=== PATIENT | female | born 1990 | race Caucasian/White ===

== ENCOUNTER 2018-07-01 10:03 | Emergency (ER) | payer OTHER ==
[2018-07-01] MEDS: METOCLOPRAMIDE INJ 10MG/2ML VIAL (J2765) IV (11:25)
[2018-07-01] MEDS: KETOROLAC 30 MG/ML VIAL (J1885) IV (11:26)
== END 2018-07-01 12:29 | disposition home or self-care (01) ==
LOC: M ED 10:03
DX: G43.809 Other migraine, not intractable, without status migrainosus (principal); R47.01 Aphasia; Z88.1 Allergy status to other antibiotic agents; Z88.8 Allergy status to other drugs, medicaments and biological substances
CPT/HCPCS: J1885

== ENCOUNTER → 2018-11-05 | Outpatient (REF) | payer OTHER | LOC: M SFHCLERA 17:47 | PROVIDERS: ATTEND Nurse Practitioner Family | DX: N30.01 Acute cystitis with hematuria (principal) ==

== ENCOUNTER 2019-04-14 21:20 | Emergency (ER) | payer OTHER ==
[~2019-04-14] VITALS: Ht 165.1 cm; Wt 66.1 kg
[2019-04-14 23:12] LABS: BASO % 0.2 % (0.0-1.0); EOS # 0.1 10^3/uL (0.0-0.5); EOS % 0.5 % (0.0-3.0); HEMATOCRIT 36.8 % (36.0-47.0); LYMPH # 2.1 10^3/uL (1.5-5.0); LYMPH % 21.3 % (24.0-44.0); MEAN CORPUSCULAR HEMOGLOBIN 32.3 pg (27.0-33.0); MEAN CORPUSCULAR HGB CONC 35.3 g/dl (32.0-36.5); MEAN CORPUSCULAR VOLUME 91.3 fl (80.0-96.0); MONO # 0.6 10^3/uL (0.0-0.8); MONO % 5.6 % (0.0-5.0); PLATELET COUNT, AUTOMATED 269 10^3/uL (150-450); RED BLOOD COUNT 4.03 10^6/uL (4.00-5.40); WHITE BLOOD COUNT 9.8 10^3/uL (4.0-10.0)
[2019-04-14] MEDS ORDERED: NS 1,000 ML IV ONE (23:15)
[2019-04-14] MEDS ORDERED: methylPREDNISolone INJ 125 MG/2 ML VIAL (J2930) IV ONE (23:15)
[2019-04-14] MEDS ORDERED: METOCLOPRAMIDE INJ 10MG/2ML VIAL (J2765) IV ONE (23:15)
[2019-04-14] MEDS ORDERED: diphenhydrAMINE INJ 50MG/ML VIAL (J1200) IV ONE (23:15)
[2019-04-14 23:54] LABS: BLOOD UREA NITROGEN 12 MG/DL (7-18); CALCIUM LEVEL 8.9 MG/DL (8.5-10.1); CARBON DIOXIDE LEVEL 22 MEQ/L (21-32); CHLORIDE LEVEL 108 MEQ/L (98-107); CREATININE FOR GFR 0.66 MG/DL (0.55-1.30); GLOMERULAR FILTRATION RATE > 60.0 (>60); GLUCOSE, FASTING 93 MG/DL (70-100); HCG, SERUM QUANTITATIVE 68023 MIU/ML; POTASSIUM SERUM 3.7 MEQ/L (3.5-5.1); SODIUM LEVEL 139 MEQ/L (136-145)
--- NOTE | 2019-04-15 00:32 | REPVR ---
EXAM: US First Trimester, Transabdominal EXAM DATE/TIME: 04/14/2019 11:57 PM CLINICAL HISTORY: 28 years old, female; complicated by abdominal or pelvic pain; Lower; First trimester; Gestational age or lmp: 7w 1d; ; Additional info: Positive , pelvic pain TECHNIQUE: Imaging protocol: Real-time transabdominal obstetrical ultrasound of the maternal pelvis and a first trimester , less than 14 weeks 0 days, with image documentation. COMPARISON: No relevant prior studies available. FINDINGS: GESTATION: Gestation: Intrauterine gestational sac with pole. Heart rate: heart rate of 150 beats per minute. Placenta: Unremarkable. No subchorionic bleed. BIOMETRY: Mcnair-Rump length: The crown-rump length measures 1.1 cm suggesting an age of 7 weeks 1 day. The EDC is 11/30/2019. MATERNAL: Uterus: Unremarkable. Cervix: Unremarkable. Right adnexa: The right ovary measures 3.8 x 2.2 x 3.4 cm and demonstrates blood flow. Left adnexa: The left ovary measures 2.6 x 1.9 x 2.7 cm and demonstrates blood flow. Intraperitoneal: No intraperitoneal free fluid. IMPRESSION: 1. Single live intrauterine gestation with an estimated age of 7 weeks 1 day. The EDC is 11/30/2019. 2. Otherwise negative pelvic sonogram. Electronically signed by: Kannan Summers On 04/15/2019 00:32:52 AM
[2019-04-15 02:17] VITALS: BP 119/62
== END 2019-04-15 02:18 | disposition home or self-care (01) ==
LOC: M ED 21:20
DX: O99.351 Diseases of the nervous system complicating pregnancy, first trimester (principal); G43.909 Migraine, unspecified, not intractable, without status migrainosus; G40.909 Epilepsy, unspecified, not intractable, without status epilepticus; Z88.1 Allergy status to other antibiotic agents; Z88.8 Allergy status to other drugs, medicaments and biological substances; Z3A.01 Less than 8 weeks gestation of pregnancy
CPT/HCPCS: 76801; 80048; 81001; 84702; 85025; 87086; 93976; 96361; 96374; 96375; 99284; J1200; J2765; J2930

== ENCOUNTER 2019-04-28 15:35 | Emergency (ER) | payer OTHER ==
[~2019-04-28] VITALS: Ht 165.1 cm; Wt 65.9 kg
[2019-04-28] MEDS ORDERED: NS 1,000 ML IV ONE (17:00)
[2019-04-28 17:12] LABS: BASO % 0.2 % (0.0-1.0); EOS % 0.2 % (0.0-3.0); HEMATOCRIT 38.1 % (36.0-47.0); HEMOGLOBIN 13.2 g/dl (12.0-15.5); LYMPH # 1.9 10^3/uL (1.5-5.0); LYMPH % 19.6 % (24.0-44.0); MEAN CORPUSCULAR HEMOGLOBIN 31.7 pg (27.0-33.0); MEAN CORPUSCULAR HGB CONC 34.6 g/dl (32.0-36.5); MEAN CORPUSCULAR VOLUME 91.4 fl (80.0-96.0); MONO # 0.4 10^3/uL (0.0-0.8); MONO % 3.9 % (0.0-5.0); NEUTROPHILS # 7.5 10^3/uL (1.5-8.5); NEUTROPHILS % 75.9 % (36.0-66.0); PLATELET COUNT, AUTOMATED 292 10^3/uL (150-450); RED BLOOD COUNT 4.17 10^6/uL (4.00-5.40); WHITE BLOOD COUNT 9.9 10^3/uL (4.0-10.0)
[2019-04-28 17:22] LABS: AMPHETAMINES LEVEL URINE NEGATIVE (NEGATIVE); BARBITURATES URINE NEGATIVE (NEGATIVE); BENZODIAZEPINES URINE NEGATIVE (NEGATIVE); CANNABINOIDS URINE NEGATIVE (NEGATIVE); COCAINE METABOLITE URINE NEGATIVE (NEGATIVE); METHADONE URINE NEGATIVE (NEGATIVE); OPIATES URINE NEGATIVE (NEGATIVE); PHENCYCLIDINE URINE NEGATIVE (NEGATIVE)
[2019-04-28] MEDS ORDERED: EEG (17:23)
[2019-04-28 17:24] LABS: ALT/SGPT 26 U/L (12-78); BILIRUBIN,TOTAL 0.5 MG/DL (0.2-1.0); BLOOD UREA NITROGEN 7 MG/DL (7-18); CALCIUM LEVEL 9.5 MG/DL (8.5-10.1); CARBON DIOXIDE LEVEL 24 MEQ/L (21-32); CHLORIDE LEVEL 106 MEQ/L (98-107); CREATININE FOR GFR 0.73 MG/DL (0.55-1.30); GLOMERULAR FILTRATION RATE > 60.0 (>60); GLUCOSE, FASTING 80 MG/DL (70-100); SODIUM LEVEL 138 MEQ/L (136-145); TOTAL PROTEIN 7.2 GM/DL (6.4-8.2)
[2019-04-28] MEDS ORDERED: METOCLOPRAMIDE INJ 10MG/2ML VIAL (J2765) As Ordered ONE (18:18)
[2019-04-28] MEDS ORDERED: METOCLOPRAMIDE INJ 10MG/2ML VIAL (J2765) IV ONE (18:30)
[2019-04-28 18:47] VITALS: BP 117/61
--- NOTE | 2019-04-28 19:25 | ECGEPIP ---
[facility] - ED Test Date: 2019-04-28 Pat Name: ERIK ABEL Department: Room: - Gender: Female [employer] Operator: nasreen : 1990 Requested By: Alka Mederos Order Number: [id number] Reading MD: Gordo Magdaleno Measurements Intervals Cascade Rate: 66 P: 35 CA: 95 QRS: 20 QRSD: 86 T: 20 QT: 363 QTc: 383 Interpretive Statements SINUS RHYTHM WITH SHORT CA INTERVAL NONSPECIFIC T-WAVE ABNORMALITY POSSIBLE INCOMPLETE RIGHT BUNDLE BRANCH BLOCK NO PRIORS FOR COMPARISON Electronically Signed on 04-28-2019 19:24:56 EDT by Gordo Magadleno
== END 2019-04-28 18:48 | disposition home or self-care (01) ==
LOC: M ED 15:35
DX: O21.9 Vomiting of pregnancy, unspecified (principal); Z88.1 Allergy status to other antibiotic agents; Z88.8 Allergy status to other drugs, medicaments and biological substances; Z3A.08 8 weeks gestation of pregnancy
CPT/HCPCS: 80053; 80307; 85025; 93005; 96361; 96374; 99284; J2765

== ENCOUNTER 2019-05-04 09:54 | Inpatient (IN) | payer OTHER ==
[~2019-05-04] VITALS: Ht 165.1 cm; Wt 65.1 kg
[~2019-05-04 09:54] MED LIST: EEG
[2019-05-04] MEDS ORDERED: FLEET ENEMA PR ONE (11:15)
[2019-05-04 12:35] LABS: BASO % 0.1 % (0.0-1.0); HEMATOCRIT 40.8 % (36.0-47.0); HEMOGLOBIN 14.4 g/dl (12.0-15.5); LYMPH # 0.7 10^3/uL (1.5-5.0); MEAN CORPUSCULAR HEMOGLOBIN 31.2 pg (27.0-33.0); MEAN CORPUSCULAR HGB CONC 35.3 g/dl (32.0-36.5); MEAN CORPUSCULAR VOLUME 88.3 fl (80.0-96.0); MONO # 1.2 10^3/uL (0.0-0.8); MONO % 5.2 % (0.0-5.0); NEUTROPHILS # 21.1 10^3/uL (1.5-8.5); NEUTROPHILS % 91.2 % (36.0-66.0); PLATELET COUNT, AUTOMATED 305 10^3/uL (150-450); RED BLOOD COUNT 4.62 10^6/uL (4.00-5.40); WHITE BLOOD COUNT 23.1 10^3/uL (4.0-10.0)
[2019-05-04 13:05] LABS: BLOOD UREA NITROGEN 10 MG/DL (7-18); CALCIUM LEVEL 9.1 MG/DL (8.5-10.1); CARBON DIOXIDE LEVEL 21 MEQ/L (21-32); CHLORIDE LEVEL 104 MEQ/L (98-107); CREATININE FOR GFR 0.64 MG/DL (0.55-1.30); GLOMERULAR FILTRATION RATE > 60.0 (>60); GLUCOSE, FASTING 130 MG/DL (70-100); POTASSIUM SERUM 3.9 MEQ/L (3.5-5.1); SODIUM LEVEL 137 MEQ/L (136-145); THYROID STIMULATING HORMONE 0.357 uIU/ML (0.358-3.740)
[2019-05-04 13:32] LABS: ALBUMIN 3.5 GM/DL (3.2-5.2); ALT/SGPT 38 U/L (12-78); AMYLASE 44 U/L (25-115); BILIRUBIN,DIRECT 0.2 MG/DL (0.0-0.2); BILIRUBIN,TOTAL 0.4 MG/DL (0.2-1.0); FREE T4 1.35 NG/DL (0.76-1.46); TOTAL PROTEIN 6.7 GM/DL (6.4-8.2)
--- NOTE | 2019-05-04 14:04 | REP ---
Limited abdominal ultrasound for evaluation of the appendix: The appendix is not visualized by ultrasound. There is pain with transducer pressure. However, there is no rebound tenderness. There is no mesenteric fat inflammation. No mesenteric lymph nodes are identified. 4. There is free fluid in the pelvis adjacent to the left ovary. Small bowel peristalsis is identified. The cecum was not visualized. Iliac nodes are not visualized. Impression: The appendix could not be visualized. Mesenteric and iliac nodes cannot be visualized. There is pain with transducer pressure, however, there is no rebound tenderness. There is free fluid in the cul-de-sac adjacent to the left ovary. Electronically Signed by Pavan Enriquez MD 05/04/2019 01:55 P
[2019-05-04] MEDS ORDERED: ONDANSETRON 4MG/2ML VIAL (J2405) IV ONE (14:15)
[2019-05-04] MEDS ORDERED: MORPHINE 2 MG/ML 1ML SYRINGE (J2270) IV ONE (14:15)
[2019-05-04] MEDS ORDERED: NS 1,000 ML IV ONE (14:15)
--- NOTE | 2019-05-04 14:37 | REP ---
FIRST TRIMESTER OBSTETRIC SONOGRAPHY: HISTORY: Generalized abdominal pain. Increased white blood cell count. FINDINGS: Transabdominal scanning is performed. A single living intrauterine gestation is seen. The crown-rump length of the embryonic pole is 36 mm. This corresponds with a gestational age estimate 10 weeks 4 days. heart rate is recorded at 187 beats per minute. No subchorionic hemorrhage is seen. There is a cystic area in the maternal left adnexa consistent with corpus luteum. This measures 2.1 cm in greatest diameter. IMPRESSION: Viable single intrauterine gestation at 10 weeks 4 days by crown-rump length. YESENIA by sonography November 26, 2019. No complication is identified. Electronically Signed by Arnold Gonzalez MD 05/04/2019 05:18 P
[2019-05-04] MEDS ORDERED: ISOVUE-370 76% 100ML VIAL (Q9967) As Ordered ONE (15:00)
[2019-05-04] MEDS ORDERED: metroNIDAZOLE 500 MG in IV 1 EA IV ONE (17:15)
[2019-05-04] MEDS ORDERED: MORPHINE 4 MG/ML 1ML VIAL/SYRINGE (J2270) IV ONE (17:15)
--- NOTE | 2019-05-04 17:37 | REP ---
CT ABDOMEN AND PELVIS WITH IV CONTRAST: TECHNIQUE: Axial contrast enhanced images from the lung bases to the pubic symphysis using 100 mL Isovue 370 intravenous contrast material with multiplanar reformations. The patient is reportedly 10 weeks . Risks versus benefits of a CT scan of the abdomen and pelvis is discussed with the patient. The patient understands the risks and consents to procedure. Visualized lung bases are clear. Liver, spleen, adrenals, pancreas, and kidneys appear normal. There is no hydronephrosis. There is no abdominal aortic aneurysm. There is no adenopathy or free air. A tiny amount of perihepatic fluid is present. There is mild free fluid in the pelvis. I can not visualize the appendix. However I do not see evidence of appendicitis. There is diffuse distension of the colon with air, fluid and fecal material. The right colon is located anterior to the liver. Lower left colon appears thickened with surrounding streaky density in the pericolonic fat suggesting colitis. No mass or cyst is seen of either ovary. Gravid uterus is noted. Urinary bladder is mildly distended and grossly unremarkable. IMPRESSION: Right colon is located anterior to the liver. There is diffuse distension of the colon with air, fluid and fecal material. There is a segment of thickening and pericolonic inflammation of the lower left colon suggesting colitis is that region. The appendix can not be visualized but I do not see evidence of appendicitis. No ovarian mass is seen. Gravid uterus is noted. There is a very small amount of perihepatic fluid. There is mild free fluid in the pelvis. Electronically Signed by Pavan Castorena MD 05/05/2019 10:03 A
[2019-05-04] MEDS: PIPERACILLIN/TAZOBACTAM SOD 3.375 GM in D5W MINI-BAG PLUS 50 ML IV SCH (18:47)
--- NOTE | 2019-05-04 19:30 | HPEPDOC ---
General Date of Admission May 04, 2019 at 17:10 Date of Service: May 04, 2019 Attending Physician: CARMEN LUGO DO Chief Complaint The patient is a 28-year-old female admitted with a reason for visit of Colitis in the setting of constipation. Source: Patient Associated Symptoms: Nausea, Vomiting, Other (Abdominal Pain) History of Present Illness Jocelin is a 28yo at 10+1wks by LMP c/w 7wk US (YESENIA [id number]) pres ented to the ER with constipation and abd cramping. She reports that for the last 3 weeks, she has had a couple of small bowel movements. She reports miralax and colace have been ineffective to help with constipation. She also report n/v, but is able to drink gatorade. She reports that she presented today because she took a suppository yesterday and started having severe cramping. She presented to the ER, a CT scan was performed to r/o appendicitis, and was found to have a left sided colitis. Surgery was consulted and recommend conservative treatment with IV antibiotics and inpatient admission. She reports feeling warm at home, but did not check a temperature. CT ABD/PELVIS: IMPRESSION: Right colon is located anterior to the liver. There is diffuse distension of the colon with air, fluid and fecal material. There is a segment of thickening and pericolonic inflammation of the lower left colon suggesting colitis is tat region. The appendix can not be visualized but I do not see evidence of appendicitis. No ovarian mass is seen. Gravid uterus is noted. There is a very small amount of perihepatic fluid. There is mild free fluid in the pelvis. OB US: IMPRESSION: Viable single intrauterine gestation at 10 weeks 4 days by crown- rump length. YESENIA by sonography November 26, 2019. No complication is identified. Pelvic US Impression: The appendix could not be visualized. Mesenteric and iliac nodes cannot be visualized. There is pain with transducer pressure, however, there is no rebound tenderness. There is free fluid in the cul-de-sac adjacent to the left ovary. Home Medications No Active Prescriptions or Reported Meds Allergies Coded Allergies: clindamycin (Verified Allergy, Intermediate, RASH, 04/14/19) promethazine (Verified Adverse Reaction, Intermediate, WORSENS NAUSEA, 04/14/19) Past Medical History Medical History OBH: G1: 2010, PPROM, delivered at 34wks, NICU stay for 15days G2: 2010, term - no complications G3: 2012, term - started have seizures during G4: 2016, 36wks, no NICU stay G5: current GYNH: Menarche: 10yo, regular menses, last 5-7days, h/o chlamydia as teen, no h/o abnormal paps Seizures - currently no meds, outpatient Neuro referral Surgical History Tonsillectomy Family History Significant Family History: Seizures (Mother) Social History * Smoker: Denies Alcohol: Denies Drugs: denies A-FIB/CHADSVASC A-FIB History Current/History of A-Fib/PAF?: No Current PO Anticoag Therapy: No Review of Systems Constitutional: Reports: Weakness, Fatigue ENT: Denies: Head Aches Pulmonary: Denies: Dyspnea Cardiovascular: Denies: Chest Pain, Palpitations Gastrointestinal: Reports: Nausea, Vomiting, Abdominal Pain, Constipation; Denies: Diarrhea Genitourinary: Denies: Dysuria Hematologic: Denies: Bleeding Excessively Musculoskeletal: Denies: Back Pain Psych: Reports: Mood Normal Physical Examination General Exam: Positive: Alert Eye Exam: Positive: Conjunctiva & lids normal ENT Exam: Positive: Atraumatic Chest Exam: Positive: Clear to auscultation Heart Exam: Positive: Rate Normal; Negative: Murmurs, Rubs Abdomen Exam: Positive: BS Hypoactive, Soft, Tenderness (Diffusely) Extremity Exam: Negative: Edema Psych Exam: Positive: Mood NL Vital Signs Vital Signs Date Time Temp Pulse Resp B/P (MAP) Pulse Ox O2 Delivery O2 Flow Rate FiO2 05/04/19 18:50 98.4 87 18 109/57 (74) 98 Room Air Laboratory Data Labs 24H Laboratory Tests 2 05/04/19 12:17: Immature Granulocyte % (Auto) 0.5, White Blood Count 23.1H, Red Blood Count 4.62, Hemoglobin 14.4, Hematocrit 40.8, Mean Corpuscular Volume 88.3, Mean Corpuscular Hemoglobin 31.2, Mean Corpuscular Hemoglobin Concent 35.3, Red Cell Distribution Width 12.2, Platelet Count 305, Neutrophils (%) (Auto) 91.2H, Lymphocytes (%) (Auto) 3.0L, Monocytes (%) (Auto) 5.2H, Eosinophils (%) (Auto) 0.0, Basophils (%) (Auto) 0.1, Neutrophils # (Auto) 21.1H, Lymphocytes # (Auto) 0.7L, Monocytes # (Auto) 1.2H, Eosinophils # (Auto) 0.0, Basophils # (Auto) 0.0, Nucleated Red Blood Cells % (auto) 0.0, Anion Gap 12, Glomerular Filtration Rate > 60.0, Calcium Level 9.1, Aspartate Amino Transf (AST/SGOT) 19, Alanine Aminotransferase (ALT/SGPT) 38, Alkaline Phosphatase 65, Total Bilirubin 0.4, Direct Bilirubin 0.2, Total Protein 6.7, Albumin 3.5, Albumin/Globulin Ratio 1.09, Amylase Level 44, Thyroid Stimulating Hormone (TSH) 0.357L, Free Thyroxine 1.35 CBC/BMP Laboratory Tests 05/04/19 12:17 Red Blood Count 4.62, Mean Corpuscular Volume 88.3, Mean Corpuscular Hemoglobin 31.2, Mean Corpuscular Hemoglobin Concent 35.3, Red Cell Distribution Width 12.2, Neutrophils (%) (Auto) 91.2 H, Lymphocytes (%) (Auto) 3.0 L, Monocytes (%) (Auto) 5.2 H, Eosinophils (%) (Auto) 0.0, Basophils (%) (Auto) 0.1, Neutrophils # (Auto) 21.1 H, Lymphocytes # (Auto) 0.7 L, Monocytes # (Auto) 1.2 H, Eosinophils # (Auto) 0.0, Basophils # (Auto) 0.0 RAD Interpretation STUDY: CT ABD/PELVIS Rad Actions: Report Reviewed RAD Interpretation: Other Result Comments: Assessment/Plan 28yo at 10wks with left sided Colitis - Admit to inpatient - Consult General Surgery - thank you for your recommendations - IV Zosyn 3.375g q6hrs - IVF @ 125cc/hr - Clear liquids - Toradol 15mg q 6hr PRN, Acetamenophen 1000mg q6hr PRN, Morphine 3mg q 3hrs PRN (severe pain only as opiates can worsen constipation) - Activity as tolerated - VTE prophylaxis: SCDs while in bed - Labs: CBC in AM - Dipso: will discharge once pain stable and WBCs downtrending Crystal Celia, DO Plan / VTE VTE Prophylaxis Ordered?: Yes VTE Exclusion Mechanical Proph: Low Risk for VTE (SCDs while in bed) CARMEN LUGO DO May 04, 2019 19:30
[2019-05-04] MEDS: MORPHINE 4 MG/ML 1ML VIAL/SYRINGE (J2270) IV PRN (20:27)
[2019-05-04] MEDS: KETOROLAC 30 MG/ML VIAL (J1885) IV PRN (20:27)
[2019-05-04 20:50] VITALS: BP 111/56
[2019-05-04] MEDS: LR 1,000 ML IV SCH (22:19)
[2019-05-04] MEDS: ACETAMINOPHEN 500 MG TAB PO PRN (22:20)
[2019-05-05] VITALS (7 sets, daily range): BP systolic 96–121; BP diastolic 50–60
[2019-05-05] MEDS: MORPHINE 4 MG/ML 1ML VIAL/SYRINGE (J2270) IV PRN ×3 (00:44→11:57)
[2019-05-05] MEDS: PIPERACILLIN/TAZOBACTAM SOD 3.375 GM in D5W MINI-BAG PLUS 50 ML IV SCH ×4 (00:44→18:20)
[2019-05-05] MEDS: KETOROLAC 30 MG/ML VIAL (J1885) IV PRN ×3 (04:00→20:13)
[2019-05-05] MEDS ORDERED: ONDANSETRON 4MG/2ML VIAL (J2405) IV ONE (04:45)
[2019-05-05 05:52] LABS: HEMATOCRIT 34.5 % (36.0-47.0); MEAN CORPUSCULAR HEMOGLOBIN 31.2 pg (27.0-33.0); MEAN CORPUSCULAR HGB CONC 33.9 g/dl (32.0-36.5); PLATELET COUNT, AUTOMATED 234 10^3/uL (150-450); RED BLOOD COUNT 3.75 10^6/uL (4.00-5.40); WHITE BLOOD COUNT 16.1 10^3/uL (4.0-10.0)
[2019-05-05 06:01] LABS: HEMOGLOBIN 11.7 g/dl (12.0-15.5)
--- NOTE | 2019-05-05 06:18 | IPNPDOC ---
Text Note Date of Service The patient was seen on 05/05/19. NOTE Date: 05May2019 Hospital Day: 2 Jocelin is a 28yo at 10+2wks by LMP c/w 7wk US (YESENIA [id number]) admitted for left side colitis with slight improvement this morning. She had some nausea this morning, but zofran helped. She reports pain is currently a 6- 9/10 which is down from 9/10. She is ambulating to the bathroom and voiding spontaneously. She report no flatus. She denies shortness of breath, vaginal bleeding. VS reviewed, Temp at 100.6 at 2045Sep19, afrebile since, normotensive, nontachycardic GEN: WNWD, NAD ABD: Soft, Gravid, generalized TTP, Distended, no peritoneal signs EXT: No LE edema Labs: CBC 16>11/34<234 28yo at 10wks with left sided Colitis - improved on HD2, WBCs down from 23 to 16 - Continue in patient admission, last fever 04May2019 - Consult General Surgery - thank you for your recommendations - IV Zosyn 3.375g q6hrs - IVF @ 125cc/hr - Clear liquids - Toradol 15mg q 6hr PRN, Acetamenophen 1000mg q6hr PRN, Morphine 3mg q 3hrs PRN (severe pain only as opiates can worsen constipation) - Activity as tolerated - VTE prophylaxis: SCDs while in bed - Labs: CBC in AM - Dipso: will discharge once pain stable and WBCs downtrending Beatrice Lugo DO VS,Kvngbone, I+O VS, Kvngbone, I+O Laboratory Tests 05/04/19 12:17 Red Blood Count 4.62, Mean Corpuscular Volume 88.3, Mean Corpuscular Hemoglobin 31.2, Mean Corpuscular Hemoglobin Concent 35.3, Red Cell Distribution Width 12. 2, Neutrophils (%) (Auto) 91.2 H, Lymphocytes (%) (Auto) 3.0 L, Monocytes (%) (Auto) 5.2 H, Eosinophils (%) (Auto) 0.0, Basophils (%) (Auto) 0.1, Neutrophils # (Auto) 21.1 H, Lymphocytes # (Auto) 0.7 L, Monocytes # (Auto) 1.2 H, Eosinophils # (Auto) 0.0, Basophils # (Auto) 0.0 05/05/19 05:24 Red Blood Count 3.75 L, Mean Corpuscular Volume 92.0, Mean Corpuscular Hemoglobin 31.2, Mean Corpuscular Hemoglobin Concent 33.9, Red Cell Distribution Width 12.5 Vital Signs Date Time Temp Pulse Resp B/P (MAP) Pulse Ox O2 Delivery O2 Flow Rate FiO2 05/05/19 04:00 98.5 86 16 121/60 (80) 96 05/04/19 18:50 Room Air I&O- Last 24 Hours up to 6 AM 05/05/19 06:00 Intake Total 2315 ml Output Total 600 ml Balance 1715 ml BEATRICE LUGO DO May 05, 2019 06:18
[2019-05-05] MEDS: LR 1,000 ML IV SCH ×2 (07:02→18:21)
[2019-05-05] MEDS: ONDANSETRON 4MG/2ML VIAL (J2405) IV PRN (20:08)
[2019-05-06] MEDS: LR 1,000 ML IV SCH ×4 (00:21→21:00)
[2019-05-06] MEDS: PIPERACILLIN/TAZOBACTAM SOD 3.375 GM in D5W MINI-BAG PLUS 50 ML IV SCH ×4 (00:21→18:09)
[2019-05-06] MEDS: KETOROLAC 30 MG/ML VIAL (J1885) IV PRN ×2 (05:03→13:05)
[2019-05-06 05:17] VITALS: BP 107/60
[2019-05-06] MEDS: ONDANSETRON 4MG/2ML VIAL (J2405) IV PRN ×2 (06:54→17:23)
--- NOTE | 2019-05-06 08:28 | IPNPDOC ---
Text Note Date of Service The patient was seen on 05/05/19. NOTE No acute events overnight. Pain is slightly improved, but is still strong enough to make her cry when I touch her abdomen. Small loose BMs since admission and minimal flatus. She is still having lots of nausea. VSSAF NAD abd - soft, TTP diffuse, guarding throughout labs - below wbc is improved A/P 28y/o female with nonspecific abd pains likely due to colitis vs. constipation. I also reviewed her CT images and notice that her gallbladder is very distended. I recommend that we keep her on clq diet for today, and then is she is still in pain tomorrow I will order an US to evaluate her gallbladder for signs of disease. It is unlikely that gallbladder disease alone would cause this much pain and constipation. Continue with abx, ivf, and ambulation. Will follow. Dariusz German DO VS,Fishjose antonioe, I+O VS, Fishbone, I+O Vital Signs Date Time Temp Pulse Resp B/P (MAP) Pulse Ox O2 Delivery O2 Flow Rate FiO2 05/06/19 05:17 99.4 78 18 107/60 (76) 99 05/04/19 18:50 Room Air I&O- Last 24 Hours up to 6 AM 05/06/19 06:00 Intake Total 2250 ml Output Total 1725 ml Balance 525 ml PARADISE GERMAN DO May 06, 2019 08:28
--- NOTE | 2019-05-06 08:30 | IPNPDOC ---
Text Note Date of Service The patient was seen on 05/06/19. NOTE No acute events overnight. Pain is much improved, but still present. She is tolerating clq diet, and nausea is present but controlled with the zofran. VSSAF NAD abd - soft, TTP diffuse, no guarding or rigidity labs - pending A/P 28y/o female with nonspecific abd pains likely due to colitis vs. constipation. I will order an US to evaluate her gallbladder for signs of disease. It is unlikely that gallbladder disease alone would cause this much pain and constipation. Continue with abx, ivf, and ambulation. Regular diet. will follow. Dariusz German DO VS,Fishbone, I+O VS, Fishbone, I+O Vital Signs Date Time Temp Pulse Resp B/P (MAP) Pulse Ox O2 Delivery O2 Flow Rate FiO2 05/06/19 05:17 99.4 78 18 107/60 (76) 99 05/04/19 18:50 Room Air I&O- Last 24 Hours up to 6 AM 05/06/19 06:00 Intake Total 2250 ml Output Total 1725 ml Balance 525 ml PARADISE GERMAN DO May 06, 2019 08:30
[2019-05-06 08:45] VITALS: BP 116/56
[2019-05-06 09:36] LABS: HEMATOCRIT 29.7 % (36.0-47.0); HEMOGLOBIN 10.2 g/dl (12.0-15.5); MEAN CORPUSCULAR HEMOGLOBIN 31.4 pg (27.0-33.0); MEAN CORPUSCULAR HGB CONC 34.3 g/dl (32.0-36.5); MEAN CORPUSCULAR VOLUME 91.4 fl (80.0-96.0); PLATELET COUNT, AUTOMATED 202 10^3/uL (150-450); RED BLOOD COUNT 3.25 10^6/uL (4.00-5.40); WHITE BLOOD COUNT 14.1 10^3/uL (4.0-10.0)
[2019-05-06] MEDS: ACETAMINOPHEN 500 MG TAB PO PRN ×2 (09:52→17:23)
[2019-05-06 10:08] LABS: ALT/SGPT 33 U/L (12-78); BILIRUBIN,TOTAL 0.4 MG/DL (0.2-1.0); BLOOD UREA NITROGEN 7 MG/DL (7-18); CALCIUM LEVEL 7.5 MG/DL (8.5-10.1); CARBON DIOXIDE LEVEL 22 MEQ/L (21-32); CHLORIDE LEVEL 109 MEQ/L (98-107); CREATININE FOR GFR 0.58 MG/DL (0.55-1.30); GLOMERULAR FILTRATION RATE > 60.0 (>60); GLUCOSE, FASTING 112 MG/DL (70-100); POTASSIUM SERUM 3.3 MEQ/L (3.5-5.1); SODIUM LEVEL 140 MEQ/L (136-145); TOTAL PROTEIN 4.3 GM/DL (6.4-8.2)
[2019-05-06 13:03] VITALS: BP 111/55
--- NOTE | 2019-05-06 15:37 | IPN ---
DATE: 05/06/2019 This is hospital day #3. Jocelin is a 28-year-old, 5, para 4. She is at 10 weeks and 3 days today with an YESENIA by early ultrasound of 11/29/2019. She was admitted with left-sided colitis. She still has some nausea and some vomiting. She attempted some Jello, but she can only maintain that with some Zofran, but she still has persistent intermittent crampy pain, which she describes still is about a 9/10. She is getting to the bathroom and voiding. She has no bowel sounds. She has denied any flatus, and she is status quo from yesterday. Her inflammatory process is getting better. Her white count was dropped from 23,000 to 16,000. She is presently on Zosyn, IV fluids. She has had some Toradol. She has not had any morphine. She has her sequential compressive devices (SCDs) on and surgery is planning to review her CT scans today to evaluate further options. In reviewing her CT scans of the present time, she has a bit of perihepatic fluid and mild free fluid in the pelvis. Visualization of the appendix was not present. There is diffuse distension of the colon with air, fluid and fecal material. Right colon is anterior to liver. Lower left colon is thickened surrounding streaky densities, pericolic fat suggestive of colitis. There is no evidence of perforation at the present time. She does have visualized a gravid uterus. We will defer to surgery in regards to management of her colitis. At the present time, there is no risk. We are going to try some Zofran and Jello today to see if that will improve the situation. The patient's medications are Zofran, Ringer's lactate. She has only taken one Toradol and she has not used morphine since 05/04/2019 as her Zosyn she is getting of every 6 hours IV presently infusing.
[2019-05-06 16:00] VITALS: BP 113/58
--- NOTE | 2019-05-06 17:45 | CR ---
DATE OF CONSULTATION: 05/04/2019 REASON FOR CONSULTATION: Abdominal pain. HISTORY OF PRESENT ILLNESS: The patient is a 28-year-old female who presented to the emergency room with constipation and abdominal cramping. She has had these symptoms going on for about three weeks now. She claims she has not had a bowel movement in the past three weeks, only maybe a couple small amounts here and there. She has tried MiraLax and Colace but they did not help her at all. As the nausea and vomiting started to build up over the past few days, she decided to come into emergency room for evaluation. In the emergency room (ER), she did have an elevated white count at 23. The emergency room called me to discuss her. I was in the operating room. I went down to evaluate her and she had significant tenderness throughout her abdomen. We started off with an ultrasound to see if she had an appendicitis and the ultrasound did not visualize the appendix at all. Therefore, we proceeded with a CT. I did explain to her that there were risks involved with radiation from a CT. However, with the significance of her pain and elevated white count, I felt that it was beneficial at this time. She understood and agreed to proceed to the scan. CT was then obtained which did show diffuse distension of the colon with air-fluid and stool with some signs of colitis in the left side of the colon. The appendix was still not visualized, but did not show any inflammation in that area. PAST MEDICAL HISTORY: She has had four previous pregnancies. She also has a seizure history. PAST SURGICAL HISTORY: Tonsillectomy. ALLERGIES: CLINDAMYCIN, PROMETHAZINE. HOME MEDICATIONS: Please see medical record. SOCIAL HISTORY: Negative. FAMILY HISTORY: Noncontributory. REVIEW OF SYSTEMS: Pertinent positives and negatives as stated in the history of present illness (HPI). PHYSICAL EXAMINATION: GENERAL: Alert and oriented times three, in no acute distress. VITAL SIGNS: Temperature 97.3, pulse 88, respirations 24, blood pressure 103/58, pulse oximetry is 98% on room air. HEENT: Pupils equally round and react to light and accommodation. HEART: S1, S2, regular rate and rhythm. LUNGS: Clear to auscultation bilaterally. ABDOMEN: Soft, tender palpation diffusely, guarding throughout her abdomen, slight rigidity. There are signs of peritonitis as well. EXTREMITIES: No clubbing, cyanosis or edema. LABORATORY DATA: White count 23.1, hemoglobin 14.4, platelets 305. IMAGING STUDIES: Pelvic ultrasound was obtained first which showed free fluid in the pelvis adjacent to the left ovary, cecum was not visualized, appendix could not be visualized, mesenteric and iliac nodes could not be visualized. There is significant pain with transducer pressure but no rebound tenderness. CT showed diffuse distension of the colon with air-fluid and stool, thickening and pericolonic inflammation of the left lower colon suggesting colitis of that area. Appendix is not visualized but there are no signs of appendicitis. ASSESSMENT AND PLAN: The patient is a 28-year-old female with significant abdominal pains, peritonitis, leukocytosis likely secondary to some colitis with constipation. The underlying source of this is unknown at this time. She also is currently. Recommendation is to do a clear liquid diet, IV antibiotics, and continue to monitor her closely. If she does not have any signs of improvement over the next 24 hours or if she continues to have increasing pains and worse laboratories then she may benefit from a diagnostic laparoscopy. At this time, she will be admitted to the obstetric (OB) service which [facility]. I have already spoken with them and they have asked me to stay on consult. I will continue to follow her closely with further recommendations to follow.
--- NOTE | 2019-05-06 18:49 | REP ---
RIGHT UPPER QUADRANT ULTRASOUND: Real-time sonographic evaluation of the right upper quadrant performed. Visualized gallbladder is grossly unremarkable, not well seen due to overlying bowel anterior to the liver. There are no definite gallstones and no evidence of gallbladder wall thickening. No intrahepatic or extrahepatic biliary dilatation is identified, common bile duct measuring 5 mm. Visualization of liver and pancreas is also limited due to overlying bowel gas, but visualized portions are grossly unremarkable. Right kidney demonstrates no hydronephrosis with normal size 10.7 cm in length. Trace free fluid is seen in the right upper quadrant. There is also trace right pleural effusion. The patient is 10 weeks and heart rate is incidentally noted to be 172 beats per minute. IMPRESSION: Limited visualization of right upper quadrant structures due to overlying bowel. No gross gallbladder abnormalities and no biliary dilatation. Tiny amount of free fluid in the right upper quadrant. Electronically Signed by Pavan Castorena MD 05/07/2019 09:03 A
[2019-05-06 20:00] VITALS: BP 110/55
[2019-05-06] MEDS: MORPHINE 4 MG/ML 1ML VIAL/SYRINGE (J2270) IV PRN (20:42)
[2019-05-07] VITALS: BP 102/53
[2019-05-07] MEDS: PIPERACILLIN/TAZOBACTAM SOD 3.375 GM in D5W MINI-BAG PLUS 50 ML IV SCH ×2 (00:46→07:08)
[2019-05-07 04:00] VITALS: BP 108/61
[2019-05-07] MEDS: MORPHINE 4 MG/ML 1ML VIAL/SYRINGE (J2270) IV PRN ×4 (05:05→21:19)
[2019-05-07] MEDS: LR 1,000 ML IV SCH ×3 (05:06→23:00)
--- NOTE | 2019-05-07 07:58 | IPNPDOC ---
Text Note Date of Service The patient was seen on 05/07/19. NOTE Date: 05May2019 Hospital Day: 4 Jocelin is a 28yo at 10+4wks by LMP c/w 7wk US (YESENIA [id number]) admitted for left side colitis with improvement this morning. She had some nausea without vomiting, zofran help and is PO tolerant. She reports pain is currently decreased and is now passing flatus. No Bowel Movement yet. She is ambulating to the bathroom and voiding spontaneously. She report no flatus. She denies shortness of breath, vaginal bleeding. VS: reviewed, normotensive, afebrile since , nontachycardic GEN: WNWD, NAD CV: RRR RESP: CTAB ABD: Soft, +BS, mildly distended, mild generalized tenderness EXT: no edema, negative mauro's sign Labs: Reviewed RUQ US IMPRESSION: Limited visualization of right upper quadrant structures due to overlying bowel. No gross gallbladder abnormalities and no biliary dilatation. Tiny amount of free fluid in the right upper quadrant. 28yo at 10wks with left sided Colitis - improved on HD4, WBCs down from 23 -> 16 -> 14 - Continue in patient admission, last fever 1600 05May2019 - Consult General Surgery - thank you for your recommendations - IV Zosyn 3.375g q6hrs - IVF @ 125cc/hr - Advanced diet as tolerated - Acetamenophen 1000mg q6hr PRN, Morphine 3mg q 3hrs PRN (severe pain only as opiates can worsen constipation) - Activity as tolerated - VTE prophylaxis: SCDs while in bed - Labs: CBC in AM - Dipso: will discharge once pain stable and WBCs downtrending and further recommendations from General Surgery Beatrice Lugo DO VS,Fishbone, I+O VS, Fishbone, I+O Laboratory Tests 05/06/19 09:03 Red Blood Count 3.25 L, Mean Corpuscular Volume 91.4, Mean Corpuscular Hemoglobin 31.4, Mean Corpuscular Hemoglobin Concent 34.3, Red Cell Distribution Width 12.5, Calcium Level 7.5 #L, Aspartate Amino Transf (AST/SGOT) 14, Alanine Aminotransferase (ALT/SGPT) 33, Alkaline Phosphatase 63, Total Bilirubin 0.4, Total Protein 4.3 #L, Albumin 2.0 #L Vital Signs Date Time Temp Pulse Resp B/P (MAP) Pulse Ox O2 Delivery O2 Flow Rate FiO2 05/07/19 05:15 16 05/07/19 04:00 99.5 73 108/61 (77) 100 05/04/19 18:50 Room Air I&O- Last 24 Hours up to 6 AM 05/07/19 06:00 Intake Total 2195 ml Output Total 1450 ml Balance 745 ml BEATRICE LUGO DO May 07, 2019 07:57
[2019-05-07 08:00] VITALS: BP 106/58
[2019-05-07] MEDS: ONDANSETRON 4MG/2ML VIAL (J2405) IV PRN ×2 (08:16→21:18)
--- NOTE | 2019-05-07 08:32 | IPNPDOC ---
Text Note Date of Service The patient was seen on 05/07/19. NOTE No acute events overnight. Pain is much improved, and is now localized to the LLQ only. She is tolerating reg diet, but only a few bites and that is only with zofran also. She is not ambulating much yet due to the pain. VSSAF NAD abd - soft, TTP LLQ only, no guarding or rigidity GB US - no signs of cholecystitis or stones A/P 28y/o female with nonspecific abd pains likely due to colitis vs. constipation that is improving slowly. Continue with abx, ivf, and ambulation. Regular diet. Recommend mag citrate, and some bentyl. will follow. Dariusz German DO VS,Fishbone, I+O VS, Fishbone, I+O Laboratory Tests 05/06/19 09:03 Red Blood Count 3.25 L, Mean Corpuscular Volume 91.4, Mean Corpuscular Hemoglobin 31.4, Mean Corpuscular Hemoglobin Concent 34.3, Red Cell Distribution Width 12.5, Calcium Level 7.5 #L, Aspartate Amino Transf (AST/SGOT) 14, Alanine Aminotransferase (ALT/SGPT) 33, Alkaline Phosphatase 63, Total Bilirubin 0.4, Total Protein 4.3 #L, Albumin 2.0 #L Vital Signs Date Time Temp Pulse Resp B/P (MAP) Pulse Ox O2 Delivery O2 Flow Rate FiO2 05/07/19 08:00 98.0 76 18 106/58 (74) 98 05/04/19 18:50 Room Air I&O- Last 24 Hours up to 6 AM 05/07/19 05:59 Intake Total 2195 ml Output Total 1450 ml Balance 745 ml PARADISE GERMAN DO May 07, 2019 08:32
[2019-05-07] MEDS: DICYCLOMINE 10 MG CAP PO SCH ×3 (09:25→21:06)
[2019-05-07] MEDS: SIMETHICONE 80 MG CHEW TAB PO SCH ×4 (09:25→21:07)
[2019-05-07] MEDS ORDERED: MAGNESIUM CITRATE 300 ML BTL PO ONE (10:00)
[2019-05-07 12:00] VITALS: BP 114/58
[2019-05-07] MEDS ORDERED: ONDANSETRON 4MG/2ML VIAL (J2405) IV ONE (14:00)
[2019-05-07] MEDS: AUGMENTIN 500 MG TAB PO SCH ×2 (15:32→21:07)
[2019-05-07 16:00] VITALS: BP 120/81
[2019-05-07 20:00] VITALS: BP 119/63
[2019-05-08] VITALS: BP 107/56
[2019-05-08 04:00] VITALS: BP 109/64
[2019-05-08] MEDS: LR 1,000 ML IV SCH ×2 (06:50→14:37)
[2019-05-08] MEDS: AUGMENTIN 500 MG TAB PO SCH ×2 (06:50→14:18)
[2019-05-08 08:35] VITALS: BP 105/58
[2019-05-08] MEDS: DICYCLOMINE 10 MG CAP PO SCH ×2 (08:42→16:10)
[2019-05-08] MEDS: SIMETHICONE 80 MG CHEW TAB PO SCH ×2 (08:42→14:18)
[2019-05-08] MEDS ORDERED: SENNA 8.6 MG TAB (SENOKOT) PO PRN (11:45)
[2019-05-08] MEDS ORDERED: MIRALAX *UNIT DOSE* 17GM PACKET PO SCH (12:00)
[2019-05-08 12:30] VITALS: BP 117/68
[2019-05-08 16:00] VITALS: BP 99/60
[2019-05-08] MEDS ORDERED: SENN18TA PO (16:13)
[2019-05-08] MEDS ORDERED: AMOX500T2 PO (16:13)
[2019-05-08] MEDS ORDERED: PEG1POW PO (16:13)
--- NOTE | 2019-05-08 16:39 | DS.PDOC ---
Discharge Summary General Date of Admission May 04, 2019 at 17:10 Date of Discharge May 08, 2019 Specialist/Consultants Involve: PARADISE NICHOLAS DO Discharge Summary PROCEDURES PERFORMED DURING STAY: [None]. ADMITTING DIAGNOSES: 1. Colitis. 2. 10 weeks DISCHARGE DIAGNOSES: 1. Colitis. 2. 10 weeks COMPLICATIONS/CHIEF COMPLAINT: Colitis. HISTORY OF PRESENT ILLNESS: Jocelin is a 28yo who was admitted at 10+1wks by LMP c/w 7wk US (YESENIA [id number]) after presenting to the ER with constipation and abd cramping. She reported that for the last 3 weeks, she has had a couple of small bowel movements, for the last few days no flatus and increasing abdominal pain. She reported miralax and colace have been ineffective to help with constipation. She also reported n/v, but was able to drink gatorade. She reported that she presented today because she took a suppository prior to presenting to the ER and started having severe cramping. While in the ER, a CT scan was performed, and was found to have a left sided colitis. Surgery was consulted and recommend conservative treatment with IV antibiotics and inpatient admission. HOSPITAL COURSE: She was admitted and was treated with IV antibiotics and conservative treatment. She has remained stable and improving during her hospital admission. She had a right upper quadrant US, which was unremarkable. Leukocytosis improved as well as symptoms. Over the last 24 hours, nausea has resolved and is tolerating a regular diet, she has been passing flatus and bowel movements of loose stools. Vital signs have been stable. She met all criteria for discharge on hospital day 5. DISCHARGE MEDICATIONS: Please see below. ALLERGIES: Please see below. PHYSICAL EXAMINATION ON DISCHARGE: VITAL SIGNS: Please see below. GEN: WNWD, NAD CV: RRR RESP: CTAB ABD: Soft, +BS, non distended, mild localized left lower quadrant tenderness, no rebound or peritoneal signs : area around 12 o'clock on anus and around perineal body, erythema and ttp, no signs of thrombosed hemorrhoid or fissure, no masses or lesions noted EXT: no edema, negative mauro's sign LABS: Reviewed, See below. IMAGING: CT ABD/PELVIS IMPRESSION: Right colon is located anterior to the liver. There is diffuse distension of the colon with air, fluid and fecal material. There is a segment of thickening and pericolonic inflammation of the lower left colon suggesting colitis is that region. The appendix can not be visualized but I do not see evidence of appendicitis. No ovarian mass is seen. Gravid uterus is noted. There is a very small amount of perihepatic fluid. There is mild free fluid in the pelvis. RUQ US IMPRESSION: Limited visualization of right upper quadrant structures due to overlying bowel. No gross gallbladder abnormalities and no biliary dilatation. Tiny amount of free fluid in the right upper quadrant. PROGNOSIS: Good ACTIVITY: [As tolerated]. DIET: High Fiber - handout provided from nurse. DISCHARGE PLAN: 28yo at 10wks with left sided Colitis - improved on HD5 - meeting criteria for discharge - Consulted General Surgery - thank you for your recommendations - Augmentin 500mg TID x 7days - Miralax, Senna for bowel regime - High Fiber diet - Acetamenophen 1000mg q6hr PRN pain - Activity as tolerated - Encouraged hydrations, at least 1 gallon of water per day - Sitz Baths, Tucks pads recommend for perineal/perianal irritation - Strict return precautions discussed - Follow up in 1 week DISPOSITION: home today. ITEMS TO FOLLOWUP ON ON OUTPATIENT: 1. in 1 week with OBGYN DISCHARGE CONDITION: [Stable]. TIME SPENT ON DISCHARGE: Greater than [20] minutes. Beatrice Lugo DO Vital Signs/I&Os Vital Signs Date Time Temp Pulse Resp B/P (MAP) Pulse Ox O2 Delivery O2 Flow Rate FiO2 05/08/19 12:30 98.1 68 18 117/68 (84) 100 05/04/19 18:50 Room Air I&O- Last 24 Hours up to 6 AM 05/08/19 06:00 Intake Total 6310 ml Output Total 3500 ml Balance 2810 ml Discharge Medications Scheduled Amoxicillin/Potassium Clav (Amox-Clav 500-125 mg Tablet) 1 Each Tablet, 500 MG PO Q8H Polyethylene Glycol 3350 (Polyethylene Glycol 3350) 17 Gm Powd.pack, 1 PKT PO BID Scheduled PRN Senna (Senna Lax) 8.6 Mg Tablet, 1 TAB PO BIDP PRN for CONSTIPATION Allergies Coded Allergies: clindamycin (Verified Allergy, Intermediate, RASH, 04/14/19) promethazine (Verified Adverse Reaction, Intermediate, WORSENS NAUSEA, 04/14/19) BEATRICE LUGO DO May 08, 2019 16:39
--- NOTE | 2019-05-08 17:11 | IPNPDOC ---
Text Note Date of Service The patient was seen on 05/08/19. NOTE No acute events overnight. Pain is much improved. She is tolerating reg diet without nausea, and is ambulating. VSSAF NAD abd - soft, TTP LLQ only, no guarding or rigidity GB US - no signs of cholecystitis or stones A/P 28y/o female with nonspecific abd pains likely due to colitis vs. constipation that is improving slowly. Continue with abx, and ambulation. Regular diet. Recommend senna plus, and miralax daily along with high fiber diet. Stable for dc from surgical standpoint. Dariusz German DO VS,Fishbone, I+O VS, Fishbone, I+O Vital Signs Date Time Temp Pulse Resp B/P (MAP) Pulse Ox O2 Delivery O2 Flow Rate FiO2 05/08/19 12:30 98.1 68 18 117/68 (84) 100 05/04/19 18:50 Room Air I&O- Last 24 Hours up to 6 AM 05/08/19 05:59 Intake Total 4810 ml Output Total 3500 ml Balance 1310 ml PARADISE GERMAN DO May 08, 2019 17:11
== END 2019-05-08 17:45 | disposition home or self-care (01) | DRG 832 ==
LOC: M ED 09:54 → M ED INP 17:10 → M PED 20:55
PROVIDERS: ADMIT Obstetrics & Gynecology; ATTEND Obstetrics & Gynecology
DX: O99.611 Diseases of the digestive system complicating pregnancy, first trimester (principal); K51.50 Left sided colitis without complications; Z3A.10 10 weeks gestation of pregnancy; Z88.8 Allergy status to other drugs, medicaments and biological substances; K59.00 Constipation, unspecified; K52.9 Noninfective gastroenteritis and colitis, unspecified

== ENCOUNTER 2019-06-18 09:19 | Emergency (ER) | payer OTHER ==
[~2019-06-18] VITALS: Ht 165.1 cm; Wt 63.2 kg
[~2019-06-18 09:19] MED LIST changes: +AMOX500T2 PO; +PEG1POW PO; +SENN18TA PO
[2019-06-18] MEDS ORDERED: REGL10TA6 PO (09:29)
[2019-06-18] MEDS ORDERED: PRENTAB53 PO (09:47)
[2019-06-18] MEDS ORDERED: ACETAMINOPHEN 325 MG TAB PO ONE (11:30)
[2019-06-18] MEDS ORDERED: KEFL500C17 PO (13:07)
[2019-06-18 13:22] VITALS: BP 109/63
--- NOTE | 2019-06-22 14:57 | REP ---
Obstetric ultrasound for abdominal pain and cramping: Comparison is 06/18/2019. No There is a single intrauterine gestation. There is cardiac activity. The heart rate is 147 beats per minute. There is movement. No subchorionic hematoma is identified. The placenta is anterior. There is no placenta previa or abruptio. Cervix measures 4.1 cm length. Gestational age by the first ultrasound is 16 weeks 4 days/YESENIA 11/28/2009. Gestational age by LMP is 16 weeks 4 days/YESENIA 11/28/2009. The maternal adnexa and cul-de-sac are unremarkable. There is no free fluid. Electronically Signed by Pavan Enriquez MD 06/18/2019 10:46 A
== END 2019-06-18 13:41 | disposition home or self-care (01) ==
LOC: M ED 09:19
DX: O23.42 Unspecified infection of urinary tract in pregnancy, second trimester (principal); O99.89 Other specified diseases and conditions complicating pregnancy, childbirth and the puerperium; R10.2 Pelvic and perineal pain; O99.352 Diseases of the nervous system complicating pregnancy, second trimester; G43.909 Migraine, unspecified, not intractable, without status migrainosus; O99.612 Diseases of the digestive system complicating pregnancy, second trimester; K21.9 Gastro-esophageal reflux disease without esophagitis; Z3A.16 16 weeks gestation of pregnancy; Z88.1 Allergy status to other antibiotic agents; Z88.8 Allergy status to other drugs, medicaments and biological substances; Z91.040 Latex allergy status

== ENCOUNTER 2019-09-06 18:33 | Outpatient (CLI) | payer OTHER ==
[~2019-09-06] VITALS: Ht 165.1 cm; Wt 69.4 kg
[~2019-09-06 18:33] MED LIST changes: +KEFL500C17 PO; +PRENTAB53 PO; +REGL10TA6 PO
[2019-09-06 18:43] VITALS: BP 124/63
[2019-09-06] MEDS ORDERED: FAMOTIDINE 20 MG TAB PO ONE (19:00)
[2019-09-06] MEDS ORDERED: LR 1,000 ML IV ONE (19:15)
[2019-09-06 20:01] LABS: APPEARANCE, URINE HAZY (CLEAR); BACTERIA, URINE AUTO 2+ (NEGATIVE); BILIRUBIN, URINE AUTO NEGATIVE (NEGATIVE); BLOOD, URINE BLOOD NEGATIVE (NEGATIVE); COLOR, URINE YELLOW (YELLOW); GLUCOSE, URINE (UA) AUTO NEGATIVE (NEGATIVE); KETONE, URINE AUTO NEGATIVE (NEGATIVE); LEUKOCYTE ESTERASE, URINE AUTO NEGATIVE (NEGATIVE); MUCUS, URINE SMALL (NEGATIVE); NITRITE, URINE AUTO NEGATIVE (NEGATIVE); PROTEIN, URINE AUTO NEGATIVE (NEGATIVE); RBC, URINE AUTO 0 /HPF (0-3); SPECIFIC GRAVITY URINE AUTO 1.011 (1.002-1.035); SQUAMOUS EPITHELIAL CELL UR AU 0 /HPF (0-6); UROBILINOGEN, URINE AUTO 0.2 mg/dL (0.0-2.0); WBC, URINE AUTO 5 /HPF (0-3)
--- NOTE | 2019-09-06 21:24 | IPNPDOC ---
Text Note Date of Service The patient was seen on 09/06/19. NOTE patient is a 29 yo @ 28wks gestation presents with concern for cramping since this AM. cramping has been getting progressively worse throughout the day. she has had n/v throughout this and has been taking reglan which helps. She did not take any reglan today and she had emesis x 4. She reports waking up with sourness in the back of her throat. denies LOF/VB. +fm. vitals: normal nad abd: gravid, soft, nt le: no edema/erythema/tenderness speculum exam: white discharge, no lesion, no bleeding, cervix visually closed and long. CE: closed/long/high, medium, posterior wet prep: neg clue cells/trich nikita: neg whiff/bud/hyphae fht: 140/mod magda/no accel/no decel toco: occasional contractions UA: S.011, neg leuk, neg nitrite, bact 2+, squam 0 cervix rechecked after 2 hrs in triage unchanged. a/p patient @ 28wks gestation with cramping, possibly from emesis today. emesis likely secondary to acid reflux. pepcid and lr bolus X2. Patient reports decreased cramping. no e/o labor at this time. patient instructed to roller picker macrobid and pepcid at [facility]. f/u with scheduled appointment. DO Bhavani VS,Jillian, I+O VS, Fishbone, I+O Vital Signs Date Time Temp Pulse Resp B/P (MAP) Pulse Ox O2 Delivery O2 Flow Rate FiO2 09/06/19 18:43 98.0 88 20 124/63 (83) GUILLERMINA DOAN DO Sep 06, 2019 19:47
== END 2019-09-06 21:31 | disposition home or self-care (01) ==
LOC: M LDO 18:33
PROVIDERS: ATTEND Obstetrics & Gynecology
DX: O99.89 Other specified diseases and conditions complicating pregnancy, childbirth and the puerperium (principal); R10.9 Unspecified abdominal pain; O21.9 Vomiting of pregnancy, unspecified; Z3A.28 28 weeks gestation of pregnancy; Z79.899 Other long term (current) drug therapy
CPT/HCPCS: 81001; 87088; 87186; G0378; G0463

== ENCOUNTER 2019-09-23 13:55 | Observation (INO) | payer OTHER ==
[~2019-09-23] VITALS: Ht 165.1 cm; Wt 68.7 kg
[2019-09-23 14:38] LABS: BASO % 0.2 % (0.0-1.0); EOS # 0.1 10^3/uL (0.0-0.5); EOS % 0.6 % (0.0-3.0); HEMATOCRIT 35.1 % (36.0-47.0); LYMPH # 1.6 10^3/uL (1.5-5.0); LYMPH % 15.3 % (24.0-44.0); MEAN CORPUSCULAR HEMOGLOBIN 31.1 pg (27.0-33.0); MEAN CORPUSCULAR HGB CONC 34.2 g/dl (32.0-36.5); MEAN CORPUSCULAR VOLUME 90.9 fl (80.0-96.0); MONO # 0.6 10^3/uL (0.0-0.8); MONO % 5.3 % (0.0-5.0); NEUTROPHILS # 8.2 10^3/uL (1.5-8.5); NEUTROPHILS % 78.2 % (36.0-66.0); PLATELET COUNT, AUTOMATED 252 10^3/uL (150-450); RED BLOOD COUNT 3.86 10^6/uL (4.00-5.40); WHITE BLOOD COUNT 10.5 10^3/uL (4.0-10.0)
[2019-09-23 15:09] LABS: BLOOD UREA NITROGEN 6 MG/DL (7-18); CALCIUM LEVEL 9.1 MG/DL (8.5-10.1); CARBON DIOXIDE LEVEL 23 MEQ/L (21-32); CHLORIDE LEVEL 109 MEQ/L (98-107); CK-MB VALUE MASS < 1.0 NG/ML (<3.6); CPK CREATINE PHOSPHOKINASE 23 U/L (26-192); CREATININE FOR GFR 0.55 MG/DL (0.55-1.30); GLOMERULAR FILTRATION RATE > 60.0 (>60); GLUCOSE, FASTING 92 MG/DL (70-100); MB/CK RELATIVE INDEX 4.35 (< OR =4); POTASSIUM SERUM 4.2 MEQ/L (3.5-5.1); SODIUM LEVEL 140 MEQ/L (136-145); TROPONIN I < 0.02 NG/ML (< 0.10)
[2019-09-23] MEDS ORDERED: NS 1,000 ML IV ONE (17:15)
--- NOTE | 2019-09-23 17:38 | REPVR ---
PROCEDURE INFORMATION: Exam: CT Head Without Contrast Exam date and time: 09/23/2019 5:03 PM Age: 29 years old Clinical indication: Syncope and collapse TECHNIQUE: Imaging protocol: Computed tomography of the head without contrast. Radiation optimization: All CT scans at this facility use at least one of these dose optimization techniques: automated exposure control; mA and/or kV adjustment per patient size (includes targeted exams where dose is matched to clinical indication); or iterative reconstruction. COMPARISON: CT Head without contrast 07/01/2018 11:34 AM FINDINGS: Brain: No hemorrhage. Unremarkable white matter for the patient's age. No mass effect. No evolving territorial infarct. Ventricles: No significant ventriculomegaly. Bones/joints: Unremarkable. No acute fracture. Sinuses: Trace left maxillary sinus mucosal thickening. Mastoid air cells: Visualized mastoid air cells are well aerated. Soft tissues: Unremarkable. IMPRESSION: No acute intracranial abnormality seen. Electronically signed by: Tata Hitchcock On 09/23/2019 17:38:01 PM
[2019-09-23 18:08] LABS: AMPHETAMINES LEVEL URINE NEGATIVE (NEGATIVE); BARBITURATES URINE NEGATIVE (NEGATIVE); BENZODIAZEPINES URINE NEGATIVE (NEGATIVE); CANNABINOIDS URINE NEGATIVE (NEGATIVE); COCAINE METABOLITE URINE NEGATIVE (NEGATIVE); METHADONE URINE NEGATIVE (NEGATIVE); OPIATES URINE NEGATIVE (NEGATIVE); PHENCYCLIDINE URINE NEGATIVE (NEGATIVE)
[2019-09-23] MEDS ORDERED: ACETAMINOPHEN TAB 650MG DOSE (2X325MG) PO ONE (18:15)
--- NOTE | 2019-09-23 19:00 | REPVR ---
PROCEDURE INFORMATION: Exam: US , Limited Exam date and time: 09/23/2019 6:21 PM Age: 29 years old Clinical indication: complicated by abdominal or pelvic pain; Generalized abdominal pain; Second trimester; Gestational age or lmp: 30 weeks 3 days; ; Additional info: Syncope/fall, R/O abruption, HX of seizures TECHNIQUE: Imaging protocol: Real-time ultrasound of the maternal uterus with image documentation. Exam focused on the clinical indication. COMPARISON: US OBS [facility] 06/18/2019 10:20 AM FINDINGS: GESTATION: Gestation: Single intrauterine gestation. Heart rate: The heart rate is 130 bpm. Presentation: presentation is cephalic. Placenta: The placenta is anterior. No evidence of abruption. The amniotic fluid index is 17.3 cm. MATERNAL: Cervix: The cervix is long and closed measuring 3.3 cm. IMPRESSION: No evidence of placental abruption. PROCEDURE INFORMATION: Exam: US Doppler Velocimetry of the Umbilical Artery Exam date and time: 09/23/2019 6:21 PM Age: 29 years old Clinical indication: complicated by abdominal or pelvic pain; Generalized abdominal pain; Second trimester; Gestational age or lmp: 30 weeks 3 days; ; Additional info: Syncope/fall, R/O abruption, HX of seizures TECHNIQUE: Imaging protocol: US Doppler velocimetry of the umbilical artery with Doppler color and waveform analysis. [facility]/18/[facility] 10:20 AM FINDINGS: Umbilical cord and insertion: There are 2 umbilical arteries and single umbilical vein. Cord insertion on the abdominal is normal. Umbilical artery Doppler: Waveforms are within normal limits for age. Umbilical artery peak systolic velocity: 61 cm/s. Umbilical artery systolic to diastolic ratio: Systolic to diastolic ratio is not elevated for age, 2.34. IMPRESSION: No evidence of increased resistance to blood flow. Electronically signed by: Tata Hitchcock On 09/23/2019 19:00:50 PM
[2019-09-23] MEDS ORDERED: FAMO20TA PO (19:44)
[2019-09-23 19:59] LABS: ALBUMIN 2.9 GM/DL (3.2-5.2); ALT/SGPT 19 U/L (12-78); BILIRUBIN,DIRECT < 0.1 MG/DL (0.0-0.2); BILIRUBIN,TOTAL 0.3 MG/DL (0.2-1.0)
--- NOTE | 2019-09-23 20:19 | ECGEPIP ---
[facility] - ED Test Date: 2019-09-23 Pat Name: ERIK ABEL Department: Room: - Gender: Female Hand I Cutter: fidelina hirsch : 1990 Requested By: MICHELLE Ortiz Order Number: [id number] Reading MD: Alka Mederos Measurements Intervals [place] Rate: 82 P: 6 MI: 104 QRS: 10 QRSD: 93 T: 17 QT: 332 QTc: 388 Interpretive Statements SINUS RHYTHM WITH SHORT MI INTERVAL NSTTW abnormalities INCREASED RATE 04/28/19 Electronically Signed on 09-23-2019 20:19:04 EST by Alka Mederos
[2019-09-23 20:37] LABS: LDH LACTATE DEHYDROGENASE 165 U/L (84-246); URIC ACID 3.6 MG/DL (2.6-6.0)
[2019-09-23] MEDS ORDERED: METOCLOPRAMIDE 10 MG TAB PO PRN (21:15)
--- NOTE | 2019-09-23 21:22 | HPEPDOC ---
General Date of Admission 09/23/19 Date of Service: Sep 23, 2019 Chief Complaint The patient is a 29-year-old female admitted with a reason for visit of Fall Injury. Source: Patient Exam Limitations: No limitations Timing/Duration: 4-6 hours Severity: Mild Associated Symptoms: Seizure History of Present Illness Patient is 29 years old female with past history of migraine and seizures p resented hospital after syncope. Patient stated that around noontime she developed syncope on the stairs and she lost consciousness for 5-7 minutes. She doesn't have any recollection of this event. Of note patient has been having seizures since age 15. She did have multiple workup which was negative. Currently Dr. Angel follows her in the outpatient settings. 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 Recent EEG was negative for any seizure-like activities. Patient stated that she has frequent seizures a few times in a week especially when she became . Of note patient has [address] head was done and it was negative. Dr. Winchester was contacted by phone and recommended MRI and MRV of the brain Home Medications Scheduled Famotidine (Famotidine) 20 Mg Tablet, 20 MG PO BID, (Reported) Vit,Calc76/Iron/Folic (Prenatabs Rx Tablet) 1 Each Tablet, 1 TAB PO QHS, (Reported) Scheduled PRN Metoclopramide HCl (Reglan) 10 Mg Tablet, 10 MG PO TID PRN for NAUSEA, (Reported) Allergies Coded Allergies: clindamycin (Verified Allergy, Intermediate, RASH, 04/14/19) latex (Verified Allergy, Intermediate, red blothy skin , 06/18/19) promethazine (Verified Adverse Reaction, Intermediate, WORSENS NAUSEA, 04/14/19) Past Medical History Medical History Seizure-like activities, migraine Family History Mother had epilepsy Social History * Smoker: Denies Alcohol: Denies Drugs: denies A-FIB/CHADSVASC A-FIB History Current/History of A-Fib/PAF?: No Current PO Anticoag Therapy: No Review of Systems Constitutional: Denies: Chills, Fever Eyes: Denies: Pain ENT: Reports: Head Aches Skin: Denies: Rash Pulmonary: Denies: Dyspnea Cardiovascular: Denies: Chest Pain, Palpitations Gastrointestinal: Denies: Nausea, Vomiting Genitourinary: Denies: Dysuria, Frequency Hematologic: Denies: Bruising, Bleeding Excessively Endocrine: Denies: Polydipsia Musculoskeletal: Denies: Neck Pain Neurological: Reports: Seizures (seizure-like activities); Denies: Weakness, Numbness, Change in speech, Confusion Psych: Reports: Mood Normal Physical Examination General Exam: Positive: Alert, Cooperative Eye Exam: Positive: PERRLA, Conjunctiva & lids normal ENT Exam: Positive: Atraumatic Neck Exam: Positive: Supple; Negative: JVD Chest Exam: Positive: Clear to auscultation Heart Exam: Positive: Rate Normal Telemetry: Positive: No significant arrhythmia Abdomen Exam: Positive: Normal bowel sounds Extremity Exam: Negative: Clubbing, Cyanosis Skin Exam: Positive: Nl turgor and temperature Neuro Exam: Positive: Normal Gait, Strength at 5/5 X4 ext, Cranial Nerves 3-12 NL Psych Exam: Positive: Mental status NL Vital Signs Vital Signs Date Time Temp Pulse Resp B/P (MAP) Pulse Ox O2 Delivery O2 Flow Rate FiO2 09/23/19 17:39 97.6 86 18 123/63 (83) 99 Room Air Laboratory Data Labs 24H Laboratory Tests 2 09/23/19 14:18: Immature Granulocyte % (Auto) 0.4, Neutrophils (%) (Auto) 78.2H, Lymphocytes (%) (Auto) 15.3L, Monocytes (%) (Auto) 5.3H, Eosinophils (%) (Auto) 0.6, Basophils (%) (Auto) 0.2, Neutrophils # (Auto) 8.2, Lymphocytes # (Auto) 1.6, Monocytes # (Auto) 0.6, Eosinophils # (Auto) 0.1, Basophils # (Auto) 0.0, Nucleated Red Blood Cells % (auto) 0.0, Anion Gap 8, Glomerular Filtration Rate > 60.0, Uric Acid 3.6, Calcium Level 9.1, Total Bilirubin 0.3, Direct Bilirubin < 0.1, Aspartate Amino Transf (AST/SGOT) 13, Alanine Aminotransferase (ALT/SGPT) 19, Alkaline Phosphatase 123H, Lactate Dehydrogenase 165, Total Creatine Kinase 23L, Creatine Kinase MB < 1.0, Creatine Kinase MB Relative Index 4.35H, Troponin I < 0.02, Total Protein 7.0, Albumin 2.9L, Albumin/Globulin Ratio 0.71L, Thyroid Stimulating Hormone (TSH) 1.030 09/23/19 16:07: Urine Opiates Screen NEGATIVE, Urine Methadone Screen NEGATIVE, Urine Barbiturates Screen NEGATIVE, Urine Phencyclidine Screen NEGATIVE, Urine Amphetamines Screen NEGATIVE, Urine Benzodiazepines Screen NEGATIVE, Urine Cocaine Metabolite Screen NEGATIVE, Urine Cannabinoids Screen NEGATIVE 09/23/19 16:08: Urine Color STRAW, Urine Appearance CLEAR, Urine pH 6.0, Urine Specific [place] 1.032, Urine Protein NEGATIVE, Urine Glucose (UA) NEGATIVE, Urine Ketones NEGATIVE, Urine Blood 1+H, Urine Nitrite NEGATIVE, Urine Bilirubin NEGATIVE, Urine Urobilinogen 0.2, Urine Leukocyte Esterase NEGATIVE, Urine WBC (Auto) 0, Urine RBC (Auto) 0, Urine Hyaline Casts (Auto) 0, Urine Bacteria (Auto) NEGATIVE, Urine Squamous Epithelial Cells 0, Urine Sperm (Auto) CBC/BMP Laboratory Tests 09/23/19 14:18 Assessment/Plan Patient is 29 years old female with past history of migraine and seizures presented hospital after syncope. Patient stated that around noontime she developed syncope on the stairs and she lost consciousness for 5-7 minutes. She doesn't have any recollection of this event. Of note patient has been having seizures since age 15. She did have multiple workup which was negative. Currently Dr. Angel follows her in the outpatient settings. 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 Problems (1) Syncope Status: Acute Problem Text: Most likely secondary seizure-like activities The etiology of the seizure is unknown for now Recently EEG was done and was negative CT head negative for acute bleed Await MRI and MRV of the brain Appreciate/agree with neurologist consult (2) Seizure-like activity Status: Acute Problem Text: See above Plan / VTE VTE Prophylaxis Ordered?: Yes AUDIE BRYANT DO Sep 23, 2019 21:22
--- NOTE | 2019-09-23 21:36 | REPVR ---
PROCEDURE INFORMATION: Exam: MR Angiogram Head Without Contrast, Venogram Exam date and time: 09/23/2019 8:49 PM Age: 29 years old Clinical indication: Convulsions / seizures and other: Syncope; Type not specified; Patient HX: 30 wks sp fall w seizure activity; Additional info: Mrv TECHNIQUE: Imaging protocol: MR angiogram of the head without contrast. Exam focused on the veins. 3D rendering: MIP and/or 3D reconstructed images were created by the technologist. COMPARISON: CT Head without contrast 09/23/2019 5:00 PM FINDINGS: Superior sagittal sinus: Patent without stenosis or thrombus. Straight sinus: Patent. Internal cerebral and cortical veins: Unremarkable as visualized. Transverse sinuses: The right transverse sinus is patent. The left transverse sinus is not visualized. Sigmoid sinuses: The right sigmoid sinus is patent. The left sigmoid sinus is not visualized. Internal jugular veins: Visualized segment patent. IMPRESSION: 1. The left sigmoid sinus and transverse sinus are not visualized. 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 No signal abnormalities are seen in the expected location of the sinus. 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 2. Otherwise normal MRV. Remaining visualized dural venous sinuses and other venous structures are patent without thrombus. Electronically signed by: Samir Teixeira On 09/23/2019 21:36:09 PM
--- NOTE | 2019-09-23 21:41 | REPVR ---
PROCEDURE INFORMATION: Exam: MR Head Without Contrast Exam date and time: 09/23/2019 8:49 PM Age: 29 years old Clinical indication: Syncope and collapse; Patient HX: 30 wks sp fall w seizure activity; Additional info: Syncope, seizure like activity TECHNIQUE: Imaging protocol: MR of the head without contrast. COMPARISON: CT Head without contrast 09/23/2019 5:00 PM FINDINGS: Brain: Normal. No acute infarct. No hemorrhage. No significant white matter disease. No edema. Ventricles: Normal. No ventriculomegaly. Bones/joints: Unremarkable. Soft tissues: Unremarkable. Sinuses: Normal as visualized. No acute sinusitis. Mastoid air cells: Normal as visualized. No mastoid effusion. Orbits: Unremarkable. IMPRESSION: Normal brain MRI. Electronically signed by: Samir Teixeira On 09/23/2019 21:40:36 PM
[2019-09-23 21:44] VITALS: BP 128/69
[2019-09-23 21:47] LABS: TOTAL PROTEIN,RANDOM URINE 22.5 MG/DL (0.0-12.0)
--- NOTE | 2019-09-24 08:51 | HPE ---
DATE OF ADMISSION: 09/23/2019 HISTORY: This lady is a 28-year-old 5, para 4, [id number], last menstrual period (LMP) 02/22/2019, estimated date of confinement (EDC) 11/29/2019. She is at 30+ weeks of gestation and she was seen in emergency today with a history of feeling dizzy and syncopal and she sat down on the top of her stairs and then found herself at the bottom of the stairs, not knowing how long she had been there. She complains on admission to the ED of left-sided pain and pain to her head. Her risk factors are that she suffers from migraines. She has a history of delivery times two, chronic constipation, a history of BV, history of syncope and pseudoseizures, which are presently being worked up as an outpatient by neurology. She declined 17 hydroxy-P after discussion with the Center. PAST HISTORY: In 2009 at 34 weeks, spontaneous vaginal delivery with premature rupture of membranes (PPROM), 4 pounds 11 ounces. In 2010 at 39 weeks, spontaneous vaginal delivery, 6 pounds 1 ounce. In 2012 at 39 weeks, spontaneous vaginal delivery, 6 pounds 8 ounces. In 2017 at 36 weeks, PPROM with spontaneous delivery, 6 pounds 1 ounce, apparently had a hemorrhage, however, did not require transfusion and apparently was dealt with by medication. LABORATORIES: Presently are B+. Hepatitis negative. RPR negative. Rubella immune. Varicella immune. Pap was normal, but no endocervical cells were seen. Urine was positive for mixed luis. Gonorrhea and chlamydia were negative. 1-hour glucose was 140, 3-hour GTT was not available. HIV is not available. PHYSICAL EXAMINATION: On examination no distress, well awake, oriented and responsive to commands. Blood pressure is 123/63, oxygen saturation on room air 99%, respirations are 18, pulse 86, temperature 97.6. Hemoglobin 12.0, hematocrit 35.1 and platelets are 252. Her chemistry is normal electrolytes, sodium, potassium chloride and her liver enzymes are normal. Anion gap is 8, BUN is 6. Liver function is normal. Urine is 1.030, pH of 6 and all negative. An ultrasound performed showed vertex presenting of baby estimated at 30 weeks. heart rate is 130. YANNICK is 17.3. Cervix is closed, thick and 3.3 cm. No evidence of abruption. The SD ratio was normal and cord insertion was in the normal area. The CT scan of the head showed no acute intracranial abnormality. The ECG was normal. The EKG was normal. She had a second episode which was seen by the emergency room physician of query pseudoseizure like activity, moving the arms around, but resisting. No postictal state, was awake and alert and there was absolutely no change in her vital signs during this episode. Our impression is that there is no obstetrical issue at the present time. For completeness we have ordered a preeclampsia profile and awaiting the protein creatinine ratio. Consult with neurology, will work her up as an outpatient for pseudoseizures. Also we are waiting for a brain MRI without contrast and a drug tox screen. The other option is to admit her for observation under medicine with support with obstetrics. The patient was reluctant to stay however, she is presently having her testing performed and we will reevaluate her and have a discussion with her when she comes back from the MRI without contrast.
[2019-09-24] MEDS ORDERED: FAMOTIDINE 20 MG TAB PO SCH (09:00)
--- NOTE | 2019-09-24 17:48 | IPN ---
DATE: 09/23/2019 This lady came in through emergency with pseudoseizures and syncopal episode after falling down the stairs and being unconscious for a time unknown. She had a significant workup and we awaited for the brain MRI with contrast. 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 We did a preeclamptic profile to complete the obstetric part of the investigation. Her protein creatinine ratio was 0.12. Liver function was normal. The rest of the preeclamptic profile was within normal limits. The patient was discharged from obstetrical care. She is to have a followup with neurology and they will workup as an outpatient for pseudoseizures. The patient expressed understanding of the plan of care and will call [facility] tomorrow to make an appointment for follow up with the clinic on Saturday. The patient was discharged undelivered and precautions were given.
== END 2019-09-23 21:42 | disposition left against medical advice (07) ==
LOC: M ED 13:55 → M ED INP 13:56 → ENRESERV 21:26
PROVIDERS: ADMIT Internal Medicine; ATTEND Internal Medicine
DX: O99.353 Diseases of the nervous system complicating pregnancy, third trimester (principal); R55 Syncope and collapse; G43.909 Migraine, unspecified, not intractable, without status migrainosus; F44.5 Conversion disorder with seizures or convulsions; Z79.899 Other long term (current) drug therapy; Z88.1 Allergy status to other antibiotic agents; Z88.8 Allergy status to other drugs, medicaments and biological substances; Z91.040 Latex allergy status; Z82.0 Family history of epilepsy and other diseases of the nervous system; Z3A.30 30 weeks gestation of pregnancy

== ENCOUNTER 2019-10-09 12:29 | Emergency (ER) | payer OTHER ==
[~2019-10-09 12:29] MED LIST changes: +FAMO20TA PO
[2019-10-09] MEDS ORDERED: NS 1,000 ML IV ONE (12:45)
[2019-10-09 13:10] LABS: HEMATOCRIT 34.9 % (36.0-47.0); HEMOGLOBIN 11.7 g/dl (12.0-15.5); MEAN CORPUSCULAR HEMOGLOBIN 30.5 pg (27.0-33.0); MEAN CORPUSCULAR HGB CONC 33.5 g/dl (32.0-36.5); MEAN CORPUSCULAR VOLUME 90.9 fl (80.0-96.0); PLATELET COUNT, AUTOMATED 226 10^3/uL (150-450); RED BLOOD COUNT 3.84 10^6/uL (4.00-5.40); WHITE BLOOD COUNT 11.2 10^3/uL (4.0-10.0)
[2019-10-09 13:30] VITALS: BP 119/68
--- NOTE | 2019-10-09 13:36 | REP ---
CT of the brain without IV contrast: Comparisons are 09/23/2019 and 07/01/2018. There is no subdural or epidural hematoma. There is no intraparenchymal or subarachnoid hemorrhage. There is no edema, mass effect or midline shift. Ventricles are normal size and midline. The cortical stripe is unremarkable. The visualized paranasal sinuses and mastoid air cells are clear. Impression: Essentially negative CT study of the brain. No interval change. Electronically Signed by Pavan Enriquez MD 10/09/2019 01:28 P
[2019-10-09 13:43] LABS: ALBUMIN 2.8 GM/DL (3.2-5.2); ALT/SGPT 14 U/L (12-78); BILIRUBIN,TOTAL 0.3 MG/DL (0.2-1.0); BLOOD UREA NITROGEN 5 MG/DL (7-18); CALCIUM LEVEL 8.5 MG/DL (8.5-10.1); CARBON DIOXIDE LEVEL 22 MEQ/L (21-32); CHLORIDE LEVEL 108 MEQ/L (98-107); CREATININE FOR GFR 0.48 MG/DL (0.55-1.30); GLOMERULAR FILTRATION RATE > 60.0 (>60); GLUCOSE, FASTING 77 MG/DL (70-100); POTASSIUM SERUM 4.4 MEQ/L (3.5-5.1); SODIUM LEVEL 138 MEQ/L (136-145); TOTAL PROTEIN 6.6 GM/DL (6.4-8.2)
[2019-10-09 14:22] LABS: INR 1.02; PROTHROMBIN TIME 13.1 SECONDS (11.8-14.0)
[2019-10-09 14:23] LABS: PARTIAL THROMBOPLASTIN TIME 27.1 SECONDS (25.0-38.4)
--- NOTE | 2019-10-10 07:18 | ECGEPIP ---
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
== END 2019-10-09 13:09 | disposition admitted as inpatient to this hospital (09) ==
LOC: M ED 12:29
DX: G43.809 Other migraine, not intractable, without status migrainosus (principal); Z3A.32 32 weeks gestation of pregnancy; Z79.899 Other long term (current) drug therapy; Z88.1 Allergy status to other antibiotic agents; Z88.8 Allergy status to other drugs, medicaments and biological substances; Z91.040 Latex allergy status

== ENCOUNTER 2019-10-09 13:17 | Outpatient (CLI) | payer OTHER ==
[~2019-10-09] VITALS: Ht 165.1 cm; Wt 68.0 kg
[2019-10-09 13:28] VITALS: BP 126/66
[2019-10-09] MEDS ORDERED: LR 1,000 ML IV SCH (14:00)
[2019-10-09] MEDS ORDERED: LACTATED RINGER'S 1000 ML IV ONE (14:00)
[2019-10-09 15:43] VITALS: BP 112/55
[2019-10-09] MEDS ORDERED: METOCLOPRAMIDE 10 MG TAB PO SCH (17:30)
--- NOTE | 2019-10-09 17:40 | REPVR ---
PROCEDURE INFORMATION: Exam: US , Limited Exam date and time: 10/09/2019 5:01 PM Age: 29 years old Clinical indication: complicated by abdominal or pelvic pain; Lower; Third trimester; Gestational age or lmp: 32; ; Additional info: 32wk w/seizure/ctx, hit abdomen please eval placenta, cervix TECHNIQUE: Imaging protocol: Real-time ultrasound of the maternal uterus with image documentation. Exam focused on the clinical indication. COMPARISON: Obs. Limited, YANNICK US 09/23/2019 6:29 PM FINDINGS: GESTATION: Gestation: Intrauterine gestation. Anatomical survey was not requested nor performed at this time. Heart rate: heart rate 146 bpm. Presentation: Fetus in cephalic presentation. Amniotic fluid: YANNICK is 16.7. DOPPLER: Umbilical artery Doppler: Umbilical cord Doppler demonstrates a peak systolic velocity of 46.9 cm/s, end-diastolic velocity of 22.4 cm/s, SD ratio of 2.09 and a resistive index is 0.52. MATERNAL: Cervix: Cervical length 2.9 cm. No funneling or bulging of membranes. IMPRESSION: Unremarkable amniotic fluid volume. Electronically signed by: Harris Maki On 10/09/2019 17:40:02 PM
--- NOTE | 2019-10-09 20:13 | IPNPDOC ---
Text Note Date of Service The patient was seen on 10/09/19. NOTE Triage Note Jocelin is a 29yo with SIUP at 32w5d who presented to ER via ambulance after falling when getting out of the shower and having unwitnessed seizure. Her forehead is bruised, and according to ER doctor she was aphasic for a short time (she was speaking by the time she came up to L&D). In the ER she had a CT head performed which was negative. Patient states this is a "normal component of her complex migraines"- she has occasional seizures. She last had an incident like this a few weeks ago on 09/23 when she had either syncope or seizure with resultant fall down the stairs- she had a negative CT head at that time, too. She has been seen by neurology with negative EEG, negative head MRI. She discussed starting medications but ultimately declined. is currently at [place] and the four young children had to go to the neighbor's house when pt was brought in via ambulance. She has felt ctx since the fall. No vaginal bleeding. No LOF. Feels good movement. Vitals wnl, afebrile General: WDWN, resting comfortably in bed HEENT: bruising to the left temporal area Abdomen: soft, gravid, NTTP Extremities: no edema of BLE SCE (RN as report developer): 1/50/high, firm, posterior (no blood on exam glove) Cat I FHRT with bl 130's, +accels, -decels, mod magda [place]: rare/occasional ctx but no pattern Labs: MBT B pos KB 0, no cells seen PT 13.1, PTT 27.1, INR 1.02, fibrinogen 457 H/H 11.7/34.9, plt 226 creat 0.48, AST 18, ALT 14 Radiology: OB Ultrasound 10/09/2019: FINDINGS: GESTATION: Gestation: Intrauterine gestation. Anatomical survey was not requested nor performed at this time. Heart rate: heart rate 146 bpm. Presentation: Fetus in cephalic presentation. Amniotic fluid: YANNICK is 16.7. DOPPLER: Umbilical artery Doppler: Umbilical cord Doppler demonstrates a peak systolic velocity of 46.9 cm/s, end-diastolic velocity of 22.4 cm/s, SD ratio of 2.09 and a resistive index is 0.52. MATERNAL: Cervix: Cervical length 2.9 cm. No funneling or bulging of membranes. IMPRESSION: Unremarkable amniotic fluid volume. Assessment: Jocelin is a 29yo with SIUP at 32w5d with NO e/o placental abruption after a fall onto the ground related to seizure vs pseudoseizure vs (more likely) syncope when she was getting out of shower. Negative head CT in the ER. Cat I FHRT. No regular ctx, OB u/s reassuring with cervical length 2.9cm, normal amniotic fluid, no placental abnormalities noted. Negative abruption labs. Plan: -Per Dr. Carey, neurologist, who evaluated Jocelin in triage, patient now amenable to starting Keppra. Will begin 250mg BID and titrate up to 500mg BID. Patient instructed to call this week for sooner appt with neuro (she is scheduled mid November). Dr. Carey wrote for Keppra to [facility] pharmacy, pt to order picker/assembler. Given her negative EEG in the past as well as normal MRIs (she has seen 5 different neurologists in the past and has never had seizure activity noted on studies), patient may have pseudoseizures vs attention seeking rather than true seizures. -Pt to call our office to get appt in 1-2wk for COB f/u -Note given to patient for 's command to explain that she needs someone in the home with her to monitor and to drive her to visits since she cannot drive. If a family member cannot come stay, then her needs to be available. -Tylenol for discomfort -Return precautions discussed -Safe for discharge home Dr. Rafia Nuñez MD VS,Jillian, I+O VS, Jillian, I+O Vital Signs Date Time Temp Pulse Resp B/P (MAP) Pulse Ox O2 Delivery O2 Flow Rate FiO2 10/09/19 15:43 88 18 112/55 (74) 10/09/19 13:28 97.4 Rafia Nuñez MD Oct 09, 2019 20:13
--- NOTE | 2019-10-10 09:58 | CR ---
DATE OF CONSULTATION: 10/09/2019 REFERRING PHYSICIAN: Dr. Rafia Nuñez REASON FOR CONSULTATION: Seizure-like spells. HISTORY OF PRESENT ILLNESS: The patient is a 29-year-old woman with four children, and she is with her fifth child, and states that she has had seizure-like spells since 2003. She states they usually occur once or twice a month, but they increase significantly during . During , she can have one episode per week up to several times a day. She states that her has seen quite a few of them. She had one episode today when she was getting done with her shower. She got out of the shower and collapsed. She felt dizzy before she passed out. Her son saw her arms shaking and her head hitting the ground. Her son called neighbors who called and she was brought to emergency department. The patient had another episode within the last couple of weeks in which she reportedly fell down the stairs. The patient states that sometimes she has an aura of dizziness and spotty vision before these episodes. She has multiple types of spells. In one type of spell, she loses consciousness without shaking. In others, she might shake for 15 seconds - 5 minutes. She cannot hear or talk to other people. In a different type of spell, one part of her body might shake, and she is conscious but she cannot stop it. It can last for 5-30 minutes. She states that she also has absence seizures. She may stare off into space for 30 seconds-5 minutes without responding. She feels weak after these episodes and feels a need to sleep. The patient states that she has seen 4-5 neurologists in the last 15 years[place] neurologists tried Topamax between her pregnancies for her headaches. Her Topamax was stopped as soon as her started. She was never on any medications during any of her pregnancies. She states that she had multiple MRI scans of brain and at least 15 EEG studies, and all of them were normal. She never took a seizure medicine during any of her pregnancies. She has headaches since 2001. They occur 3-4 times a week in bilateral temporal head region 5-9 out of 10 in intensity with nausea, dizziness, blurred vision, photophobia and phonophobia. Headaches are sharp pressure or throbbing in character. She denies any neck pain, back pain, dysphagia, dysarthria, diplopia or urinary incontinence. The patient states that she had concussions in past. She denies any febrile seizures, developmental delay, complications, learning difficulty in the past. The patient states that her mother had epilepsy. PAST MEDICAL HISTORY: Migraines, seizure-like spells, current which is number fifth for her. ALLERGIES: CLINDAMYCIN, PHENERGAN. SOCIAL HISTORY: She denies smoking, alcohol or illicit drugs. She denies any abuse, trauma or assault in the past. FAMILY HISTORY: Patient's mother has epilepsy. REVIEW OF SYSTEMS: All systems were reviewed and found to be noncontributory except as mentioned in history of present illness. CURRENT MEDICATIONS: Pepcid, Reglan, riboflavin, magnesium, vitamins. PHYSICAL EXAMINATION: Vital signs are stable, and the patient is afebrile. Heart: Regular rate and rhythm. Lungs: Clear to auscultation. Abdomen: Soft, nontender, nondistended. No pedal edema. No musculoskeletal abnormalities. No rash. No signs of meningeal irritation. No tremor, dysmetria or ataxia. The patient is awake, alert, oriented to place, person and time. Normal speech, comprehension and repetition. Extraocular muscles are intact. No facial weakness. Tongue and uvula are midline. 5/5 strength in all four extremities. Deep tendon flexes are 2+ throughout. Normal sensation. Normal cerebellar testing. DIAGNOSTIC STUDIES: CBC, metabolic profile and coagulation tests (coags) were unremarkable. Hemoglobin was 11.7 and WBC was 11.2. ASSESSMENT: 1. Syncopal episodes. 2. Seizure-like spells. 3. There is concern for seizures and psychogenic nonepileptic spells/PNES. 4. Chronic tension headaches and migraines. PLAN: 1. The patient is aware that she should not be driving. Complete seizure precautions were explained. 2. After detailed discussion with the patient about seizures and medications and their pros and cons during , she agreed to start low-dose Keppra 250 mg by mouth twice a day. She states that she plans to discontinue it when she starts . 3. The patient is scheduled for ambulatory EEG on outpatient basis. 4. Continue riboflavin and magnesium for headache prevention. 5. Followup with Dr. Angel as scheduled.
== END 2019-10-09 20:51 | disposition home or self-care (01) ==
LOC: M LDO 13:17
PROVIDERS: ATTEND Obstetrics & Gynecology
DX: O9A.213 Injury, poisoning and certain other consequences of external causes complicating pregnancy, third trimester (principal); S00.83XA Contusion of other part of head, initial encounter; Y99.9 Unspecified external cause status; W19.XXXA Unspecified fall, initial encounter; O99.353 Diseases of the nervous system complicating pregnancy, third trimester; R55 Syncope and collapse; G43.909 Migraine, unspecified, not intractable, without status migrainosus; Z3A.32 32 weeks gestation of pregnancy; Z88.1 Allergy status to other antibiotic agents; Z88.8 Allergy status to other drugs, medicaments and biological substances; Z91.040 Latex allergy status

== ENCOUNTER 2019-10-20 20:38 | Outpatient (CLI) | payer OTHER ==
[~2019-10-20] VITALS: Ht 165.1 cm; Wt 70.9 kg
[2019-10-20 20:55] VITALS: BP 105/73
[2019-10-20] MEDS ORDERED: FLUCONAZOLE 50MG TABLET PO ONE (21:45)
[2019-10-20] MEDS ORDERED: BETAMETHASONE SOLUSPAN 6MG/ML INJ 5ML (J0702) IM ONE (21:45)
[2019-10-20] MEDS ORDERED: metroNIDAZOLE 500 MG in IV 1 EA IV ONE (21:45)
[2019-10-20] MEDS ORDERED: TERBUTALINE SULFATE 1 MG/ML VIAL (J3105) SC ONE (21:45)
[2019-10-20] MEDS ORDERED: LR 1,000 ML IV ONE (21:45)
[2019-10-20] MEDS ORDERED: KEPP250T5 PO (21:49)
[2019-10-20] MEDS ORDERED: METOCLOPRAMIDE INJ 10MG/2ML VIAL (J2765) IV ONE (23:45)
--- NOTE | 2019-10-21 00:21 | IPNPDOC ---
Text Note Date of Service The patient was seen on 10/20/19. NOTE Patient is a 29yo at 34.3wks c/o contractions. Had seizure 1wk ago with fall. Having intermittent ctx since fall. Today they became regular (every 5- 10min) since 6pm today. No bleeding or LOF. Mild mucous discharge. No headaches or blurred vision. No dysuria. PE: VS WNL GEN: Uncomfortable with contractions LUNGS: BCTA HEART: RRR ABD: nontender but gravid SVE: milky discharge, nitrazine negative, FFN performed, / LE: no edema, nontender FHT: Cat 1, 150s, reactive, no decels, ?ctx q3-5min A/P: PTL with vaginitis. Start IVF with 1L LR bolus due to need of IV access due to seizure risk. Send UA and FFN. Continuous monitoring. Terb x1. Possible further tocolysis with Magnesium sulfate if needed. PO Diflucan and IV Flagyl for vaginitis to to treat for any possible cause of PTL. UA showed Leuk est and nitr. Given macrobid PO and rx sent in to cherry picker operator in AM. Ctx had ceased. Patient instructed to return in 24hrs for another Beta or sooner for PTL PPROM. VS,Fishbone, I+O VS, Fishbone, I+O Vital Signs Date Time Temp Pulse Resp B/P (MAP) Pulse Ox O2 Delivery O2 Flow Rate FiO2 10/20/19 20:55 97.9 133 16 105/73 (84) 99 Room Air Laly Enriquez MD Oct 20, 2019 22:17
[2019-10-21 00:30] LABS: APPEARANCE, URINE CLOUDY (CLEAR); BACTERIA, URINE AUTO 1+ (NEGATIVE); BILIRUBIN, URINE AUTO NEGATIVE (NEGATIVE); BLOOD, URINE BLOOD NEGATIVE (NEGATIVE); COLOR, URINE YELLOW (YELLOW); GLUCOSE, URINE (UA) AUTO 1+ mg/dL (NEGATIVE); KETONE, URINE AUTO 1+ mg/dL (NEGATIVE); LEUKOCYTE ESTERASE, URINE AUTO 3+ (NEGATIVE); MUCUS, URINE SMALL (NEGATIVE); NITRITE, URINE AUTO POSITIVE (NEGATIVE); PROTEIN, URINE AUTO 1+ mg/dL (NEGATIVE); RBC, URINE AUTO 8 /HPF (0-3); SPECIFIC GRAVITY URINE AUTO 1.018 (1.002-1.035); SQUAMOUS EPITHELIAL CELL UR AU 8 /HPF (0-6); UROBILINOGEN, URINE AUTO 0.2 mg/dL (0.0-2.0); WBC, URINE AUTO TNTC /HPF (0-3)
[2019-10-21] MEDS ORDERED: NITROFURANTOIN (MACROBID) 100 MG CAP PO ONE (00:30)
== END 2019-10-21 00:20 | disposition home or self-care (01) ==
LOC: M LDO 20:38
PROVIDERS: ATTEND Obstetrics & Gynecology
DX: O23.593 Infection of other part of genital tract in pregnancy, third trimester (principal); Z3A.34 34 weeks gestation of pregnancy; Z88.1 Allergy status to other antibiotic agents; Z88.8 Allergy status to other drugs, medicaments and biological substances; Z91.040 Latex allergy status
CPT/HCPCS: 59025; 81001; 82731; 87086; 96361; 96365; 96366; 96372; 96375; G0378; G0463; J0702; J2765; J3105

== ENCOUNTER 2019-10-21 20:38 | Outpatient (CLI) | payer OTHER ==
[~2019-10-21 20:38] MED LIST changes: +KEPP250T5 PO
[2019-10-21] MEDS ORDERED: BETAMETHASONE SOLUSPAN 6MG/ML INJ 5ML (J0702) IM ONE (21:00)
== END 2019-10-21 21:05 | disposition home or self-care (01) ==
LOC: M LDO 20:38
PROVIDERS: ATTEND Obstetrics & Gynecology
DX: O23.593 Infection of other part of genital tract in pregnancy, third trimester (principal); Z88.1 Allergy status to other antibiotic agents; Z88.8 Allergy status to other drugs, medicaments and biological substances; Z91.040 Latex allergy status

== ENCOUNTER 2019-10-31 20:25 | Outpatient (CLI) | payer OTHER ==
[~2019-10-31] VITALS: Ht 165.1 cm; Wt 70.4 kg
[2019-10-31 20:39] VITALS: BP 128/69
[2019-10-31 20:58] LABS: AMORPHOUS SEDIMENT MODERATE (NEGATIVE); APPEARANCE, URINE CLOUDY (CLEAR); BACTERIA, URINE AUTO NEGATIVE (NEGATIVE); BILIRUBIN, URINE AUTO NEGATIVE (NEGATIVE); BLOOD, URINE BLOOD NEGATIVE (NEGATIVE); COLOR, URINE YELLOW (YELLOW); GLUCOSE, URINE (UA) AUTO NEGATIVE (NEGATIVE); KETONE, URINE AUTO NEGATIVE (NEGATIVE); LEUKOCYTE ESTERASE, URINE AUTO TRACE (NEGATIVE); MUCUS, URINE SMALL (NEGATIVE); NITRITE, URINE AUTO NEGATIVE (NEGATIVE); PROTEIN, URINE AUTO NEGATIVE (NEGATIVE); RBC, URINE AUTO 2 /HPF (0-3); SPECIFIC GRAVITY URINE AUTO 1.014 (1.002-1.035); SQUAMOUS EPITHELIAL CELL UR AU 3 /HPF (0-6); WBC, URINE AUTO 5 /HPF (0-3)
--- NOTE | 2019-10-31 22:32 | IPNPDOC ---
Text Note Date of Service The patient was seen on 10/31/19. NOTE patient is a 29 yo @ 35+6wks gestation presents with concern for contractions since this afternoon. denies LOF/VB. +fm vitals: normal nad, laying bed abd: gravid, soft, nt le: no edema/erythema/ternderness fht: 145/mod magda/pos accel/no decel. toco: uterine irritability. ce: closed/long/high, soft, posterior speculum exam: white vaginal discharge wet prep: neg clue cells, neg hyphae/buds UA: see below a/p patient is @ 35+6wks, not in labor. no e/o infection. discharge home. return precautions given. f/u with clinic as scheduled. DO Bhavani VS,Jillian, I+O VS, Vladislave, I+O Vital Signs Date Time Temp Pulse Resp B/P (MAP) Pulse Ox O2 Delivery O2 Flow Rate FiO2 10/31/19 20:39 97.6 93 128/69 (88) GUILLERMINA DOAN DO Oct 31, 2019 21:08
== END 2019-10-31 22:27 | disposition home or self-care (01) ==
LOC: M LDO 20:25
PROVIDERS: ATTEND Obstetrics & Gynecology
DX: O47.02 False labor before 37 completed weeks of gestation, second trimester (principal); Z3A.35 35 weeks gestation of pregnancy
CPT/HCPCS: 59025; 81001; 87086; 87210; G0378; G0463

== ENCOUNTER 2019-11-15 12:46 | Outpatient (CLI) | payer OTHER ==
[~2019-11-15] VITALS: Ht 165.1 cm; Wt 71.5 kg
[2019-11-15 13:03] VITALS: BP 112/72
[2019-11-15] MEDS ORDERED: KEPP1TAB PO (13:07)
[2019-11-15] MEDS ORDERED: KEPP250T5 PO (13:07)
--- NOTE | 2019-11-15 15:22 | HPE ---
DATE OF ADMISSION: 11/15/2019 This lady is a 28-year-old 5, para 4, LMP 02/22/2019, EDC 11/29/2019 at 38 weeks of gestation today. She came in because she said she was vomiting and she was she was thinking that she was in labor and having contractions. PAST HISTORY: In 2009, 34 and 4 weeks spontaneous vaginal delivery after PROM, 4 pounds 11 ounces. In 2010, 39 weeks spontaneous vaginal delivery 6 pounds 1 ounce. In 2012, 39 weeks spontaneous vaginal delivery 6 pounds 8 ounces. In 2017 at 36 and 6 weeks of gestation with spontaneous vaginal delivery after PROM 6 pounds 1 ounce. She said she had a hemorrhage; however, this was not officially documented as a hemorrhage. She has risk factors in that she has chronic constipation. She suffers from complex migraines. She said she has had seizure activity and seizure-like spells since 2003. She had been seen by four or five neurologists in the last 15 years. She has had at least 15 EEGs, all of them were normal. 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 She says she has had headaches since 2001, they occur three to four times a week, bilateral temporal, 9 out of 10 pain. She apparently is supposed to take Keppra and she is not taking it according to how it is prescribed. She had a Keppra evaluation level done on 11/11/2019, it is not back yet. She comes in today complaining of either contractions or seizures, she is not quite sure which. She does not appear in any acute distress. She has a history of vomiting, however, nobody has ever witnessed her vomiting. Her labs show she is B+, HIV negative, hep negative. Rubella immune. Varicella immune. Pap normal. Urine was mixed luis positive. Gonorrhea and chlamydia negative. 1-hour glucose was 140. Her 3-hour GTT -- her fasting was 90, 1-hour 160, 2-hour 135, and 3-hour 82. She is GBS negative. Urine today 1015, pH 7, 50 for glucose, temperature 97.7, respirations 18, pulse 105, blood pressure is 112/72. EXAMINATION: Her symphysis fundus height is appropriate for 38 weeks. Four quadrant bowel sounds are noted. Category 1 strip. No loss of fluid or vaginal bleeding. Cervix is soft, posterior, 2 cm, 50-70% effaced. There is no show, and the cervix is well applied to the presenting part. She was here for about an hour and no contractions were noted on the monitor. She said that she had vomited once but it was not observed. There are no contractions on the monitor. There was category one strip with accelerations, no decelerations, moderate variability. The patient was discharged with a followup appointment on Saturday. Precautions were given regarding premature rupture of membranes, bleeding, contractions and when to call the provider. The patient expressed understanding of the plan of care and was discharged undelivered after an hour. All questions were answered.
== END 2019-11-15 14:01 | disposition home or self-care (01) ==
LOC: M LDO 12:46
PROVIDERS: ATTEND Obstetrics & Gynecology
DX: O21.8 Other vomiting complicating pregnancy (principal); O09.213 Supervision of pregnancy with history of pre-term labor, third trimester; Z3A.38 38 weeks gestation of pregnancy; O99.613 Diseases of the digestive system complicating pregnancy, third trimester; K59.09 Other constipation; O99.353 Diseases of the nervous system complicating pregnancy, third trimester; G43.809 Other migraine, not intractable, without status migrainosus; G40.89 Other seizures; Z91.14 Patient's other noncompliance with medication regimen; Z79.899 Other long term (current) drug therapy
CPT/HCPCS: 59025; G0378; G0463

== ENCOUNTER 2019-11-25 07:50 | Inpatient (IN) | payer OTHER ==
[~2019-11-25] VITALS: Ht 165.1 cm; Wt 72.8 kg
[2019-11-25] VITALS (19 sets, daily range): BP systolic 100–126; BP diastolic 58–78
[~2019-11-25 07:50] MED LIST changes: +KEPP1TAB PO
[2019-11-25] MEDS ORDERED: LACTATED RINGER'S 1000 ML IV STA (08:12)
[2019-11-25 08:47] LABS: BASO % 0.1 % (0.0-1.0); EOS # 0.1 10^3/uL (0.0-0.5); EOS % 0.6 % (0.0-3.0); HEMATOCRIT 32.9 % (36.0-47.0); HEMOGLOBIN 10.8 g/dl (12.0-15.5); LYMPH # 1.7 10^3/uL (1.5-5.0); LYMPH % 21.1 % (24.0-44.0); MEAN CORPUSCULAR HEMOGLOBIN 29.3 pg (27.0-33.0); MEAN CORPUSCULAR HGB CONC 32.8 g/dl (32.0-36.5); MEAN CORPUSCULAR VOLUME 89.2 fl (80.0-96.0); MONO # 0.4 10^3/uL (0.0-0.8); MONO % 4.7 % (0.0-5.0); NEUTROPHILS % 73.1 % (36.0-66.0); PLATELET COUNT, AUTOMATED 213 10^3/uL (150-450); RED BLOOD COUNT 3.69 10^6/uL (4.00-5.40); WHITE BLOOD COUNT 8.2 10^3/uL (4.0-10.0)
[2019-11-25] MEDS ORDERED: MAGN250T22 PO (09:00)
--- NOTE | 2019-11-25 09:20 | HPEPDOC ---
Obstetrical History & Physical General Date of Admission Nov 25, 2019 at 07:50 History of Present Illness Jocelin is a 29yo at 39+3wks gestation (EDC [id number] by LMP, c/w 7+1w k dating US) who is being admitted on LND for schedule Induction. She reports +FM, denies LOF/VB/CTX. Her spouse is at the bedside and states that he observed a seizure last night around 1830 - pt denies any recollection of this. Otherwise she has no concerns today. Her is complicated by seizures (evaluted by neuro and considered pseudo-seizures v syncope v psychogenic seizures); all EEGs and CTs have been WNL; she was prescribed Keppra, and takes 125mg AM/250mg PM. She also experiences "complex" migraines of which she was prescribed riboflavin and magnesium, but only takes magnesium. Blood Type is B+; GBS is Negative; HIV Negative 1hr Glucose 140, 3hr GTT WNL Her OB history includes 2x 39 week , 1x 34 week (PPROM), and 1x 36wk complicated by PPH (no transfusion). Chief Complaint: Induction of labor Information Provided By: Patient Age: 29 : 5 Term: 2 Pre-term: 2 Abortions: 0 Livin Care Care: Good Care Number of Visits: 12 Dating Final EDC: Nov 29, 2019 Final EDC for Daily Update: Nov 29, 2019 Final EDC by: LMP Antepartum Course Height (inches): 65 Pre- weight (lbs.): 155 Admission Weight (lbs.): 159 Change in Weight (lbs.): 4 Past Medical History Past Obstetrical History : Past Obstetrical History: Multigravida [employer]YWALL [employer]EMAN History: No pertinent history Past Medical History Medical History Seizure disorder (pseudo vs psychogenic vs syncope) Migraine HINES Overweight Chronic constipation Anemia Surgical History: Tonsilectomy, [place] teeth Family History Significant Family History: No pertinent family hx Social History Marital Status: Family situation: Spouse/partner home Psychosocial History: No pertinent psych hx * Smoker: non-smoker Alcohol: Denies Drugs: denies Imunizations Tdap status: current Influenza Status: declined Allergies Coded Allergies: clindamycin (Verified Allergy, Intermediate, RASH, 04/14/19) latex (Verified Allergy, Intermediate, red blothy skin , 06/18/19) promethazine (Verified Adverse Reaction, Intermediate, WORSENS NAUSEA, 04/14/19) Medications Scheduled Famotidine (Famotidine) 20 Mg Tablet, 20 MG PO BID Levetiracetam (Keppra) 250 Mg Tablet, 125 MG PO AMHS Levetiracetam (Keppra) 500 Mg Tablet, 125 MG PO QAM Magnesium (Magnesium) 250 Mg Tablet, 1 TAB PO DAILY Vit,Calc76/Iron/Folic (Prenatabs Rx Tablet) 1 Each Tablet, 1 TAB PO QHS Scheduled PRN Metoclopramide HCl (Reglan) 10 Mg Tablet, 10 MG PO TID PRN for NAUSEA Physical Examination Physical Examination GENERAL: Alert and oriented times three. BREAST: . ABDOMEN: Gravid and non-tender to touch. FETUS: Is vertex (VTX) by sterile vaginal examination (SVE). HEART RATE: Regular rate. LUNGS: Observed normal, nonlabored breathing. EXTREMITIES: No edema. Vital Signs/I&O O: VSS, Afebrile, BP normotensive FHR 130s, moderate variability, +accels, no decels noted CTX: occassional VE (chaperoned by JASON Alba): 370/0, soft and posterior, membranes swept at this time. Laboratory Tests 11/25/19 08:00: Serology Scanned Report Hepatitis B Testing 11/25/19 08:33: White Blood Count 8.2, Red Blood Count 3.69L, Hemoglobin 10.8L, Hematocrit 32.9L, Mean Corpuscular Volume 89.2, Mean Corpuscular Hemoglobin 29.3, Mean Corpuscular Hemoglobin Concent 32.8, Red Cell Distribution Width 12.9, Platelet Count 213, Immature Granulocyte % (Auto) 0.4, Neutrophils (%) (Auto) 73.1H, Lymphocytes (%) (Auto) 21.1L, Monocytes (%) (Auto) 4.7, Eosinophils (%) (Auto) 0.6, Basophils (%) (Auto) 0.1, Neutrophils # (Auto) 6.0, Lymphocytes # (Auto) 1.7, Monocytes # (Auto) 0.4, Eosinophils # (Auto) 0.1, Basophils # (Auto) 0.0, Nucleated Red Blood Cells % (auto) 0.0, Levetiracetam (Keppra) Level [Pending], Syphilis Serology [Pending] Laboratory Data 24H LABS Laboratory Tests 2 11/25/19 08:00: Serology Scanned Report Hepatitis B Testing 11/25/19 08:33: CBC/BMP Pertinent Laboratoy Data Blood Type: B+ RBC Antibody Screen: Negative HIV: Negative Hepatitis B: Negative Rapid Plasma Reagin: Nonreactive Rubella: Immune Varicella: Immune Chlamydia/Gonorrhea: Negative Group B Streptococcus: Negative Quad Screen Test: Declined Anatomy Ultrasound Ultrasound Date: Jul 13, 2019 Placenta Location: Anterior Normal Anatomy: Yes Placenta Previa: No Other Ultrasounds 30OCT2019 - Growth US, EFW 2548g, 46%tile Steroid Therapy Steroid Therapy: No Assessment/Plan Assessment A: 29yo at 39+3wks admitted to LND for IOL; GBS Negative, B Positive, Category I FHT. Plan P: Admit to LND, consent for Induction methods and delivery PIV start, admission labs drawn, including Keppra level CEFM x2 Start IOL with Pitocin per low dose protocol Clear liquid diet Order Keppra (125mg AM, 250mg PM) Monitor maternal/ status Consult with OB as indicated Anticipate DINA RUIZ CNM Nov 25, 2019 08:44
[2019-11-25] MEDS ORDERED: PILL CUTTER 1 EACH XX PRN (09:30)
[2019-11-25] MEDS ORDERED: OXYTOCIN DRIP 30 UNITS in IV 1 EA IV SCH (10:00)
[2019-11-25] MEDS ORDERED: LR 1,000 ML IV SCH (10:00)
--- NOTE | 2019-11-25 14:36 | IPNPDOC ---
Obstetrical Progress Note Date of Service Nov 25, 2019 Subjective In room for labor assessment of 29yo at 39+3wks who was admitted in labor this AM, currently on 4mu/min of pitocin and tolerating well. She reports +FM and feeling contraction pain, denies LOF/VB. She consents for a cervical exam. Objective O: VSS, Afebrile, BP Normotensive FHR 115, moderate variability, + accels, no decelerations noted CTX by TOCO 2-3 minutes VE: 5/80/0, mid position AROM with light meconium Vital Signs Date Time Temp Pulse Resp B/P (MAP) Pulse Ox O2 Delivery O2 Flow Rate FiO2 11/25/19 11:56 97.8 77 16 107/58 (74) Assessment and Plan Status: Reassuring Group B Streptococcus: Negative Anticipate: Vaginal Delivery Additional Comments A: 29yo at 39+3wks, entering into active labor, Category I FHT. P: Reduce pitocin to 2mu/min CEFM x2 Continue to monitor maternal/ status Anticipate Consult with OB as indicated DINA LLAMAS CNM Nov 25, 2019 14:36
[2019-11-25] MEDS ORDERED: BUTORPHANOL 2 MG/ML INJ (J0595) IV ONE (16:00)
[2019-11-25 19:05] LABS: CORD GAS ABE V -5.4; CORD GAS HCO3 V 18.6 MEQ/L; CORD GAS O2 SAT V 72.2 %; CORD GAS PCO2 V 32.4 mmHg; CORD GAS PH V 7.377 UNITS; CORD GAS PO2 V 30.5 mmHg; CORD GAS SBC V 19.5 MEQ/L; CORD GAS TCO2 V 19.6 MEQ/L
[2019-11-25 19:07] LABS: CORD GAS ABE A -5.8; CORD GAS HCO3 A 22.2 MEQ/L; CORD GAS O2 SAT A 18.3 %; CORD GAS PCO2 A 53.4 mmHg; CORD GAS PH A 7.237 UNITS; CORD GAS PO2 A 14.7 mmHg; CORD GAS TCO2 A 23.9 MEQ/L
[2019-11-25] MEDS ORDERED: MOM 30ML SUSPENSION UDC PO PRN (19:15)
[2019-11-25] MEDS ORDERED: METHYLERGONOVINE MALEATE 0.2 MG TAB PO PRN (19:15)
[2019-11-25] MEDS ORDERED: RHOGAM 300 MCG (1500 IU) INJ (J2790) IM SCH (19:15)
[2019-11-25] MEDS ORDERED: DOCUSATE SODIUM 100 MG CAP PO PRN (19:15)
[2019-11-25] MEDS ORDERED: OXYTOCIN INJ 10 UNITS/ML VIAL (J2590) IV ONE (19:15)
[2019-11-25] MEDS ORDERED: IBUPROFEN 800 MG TAB PO PRN (19:15)
[2019-11-25] MEDS ORDERED: ACETAMINOPHEN TAB 650MG DOSE (2X325MG) PO PRN (19:15)
[2019-11-25] MEDS ORDERED: DIBUCAINE 1% OINTMENT 30GM TOP PRN (19:15)
[2019-11-25] MEDS ORDERED: MEASLES,MUMPS,RUBELLA VACCINE INJ (MMR-II) (90707) SC SCH (19:15)
[2019-11-25] MEDS ORDERED: ANUSOL HC CREAM 30GM TOP PRN (19:15)
[2019-11-25] MEDS ORDERED: OXYTOCIN DRIP 30 UNITS in IV 1 EA IV ONE (19:15)
[2019-11-25] MEDS ORDERED: IBUPROFEN 600 MG TAB PO PRN (19:15)
--- NOTE | 2019-11-25 21:08 | DN ---
DATE: 11/25/2019 This lady is a 5, para 4, admitted for induction of labor at 39 and 3 weeks of gestation. She had a spontaneous vaginal delivery of a live- male infant, 7 pounds 7 ounces, 3370 grams, scores of 9 and 9 at one and five minutes, respectfully. Cord times one tight. Arterial pH 7.23, base excess -5.8, venous pH 7.37, base excess -5.4. She had quite a swollen cervix anteriorly as the baby was in a persistent occiput posterior (POP) position for a prolonged period of time. Placenta delivered spontaneously thereafter. Three-vessel cord. Membranes and tissues intact. The uterus contracted well down on Pitocin. Evaluation of the anterior, posterior, and lateral koroma was intact. Sphincter was tight. Uterus contracted well down. Minimal blood loss, 200 mL. In summary, we have a term gestation, delivered a live- male infant uneventfully.
[2019-11-25] MEDS: levETIRAcetam 250MG TABLET (KEPPRA) PO SCH (21:49)
[2019-11-26] MEDS: ACETAMINOPHEN 500 MG TAB PO PRN ×2 (00:35→09:40)
[2019-11-26 06:00] VITALS: BP 105/59
[2019-11-26 07:09] LABS: HEMATOCRIT 34.3 % (36.0-47.0); HEMOGLOBIN 11.4 g/dl (12.0-15.5); MEAN CORPUSCULAR HEMOGLOBIN 29.5 pg (27.0-33.0); MEAN CORPUSCULAR HGB CONC 33.2 g/dl (32.0-36.5); MEAN CORPUSCULAR VOLUME 88.6 fl (80.0-96.0); PLATELET COUNT, AUTOMATED 216 10^3/uL (150-450); RED BLOOD COUNT 3.87 10^6/uL (4.00-5.40); WHITE BLOOD COUNT 14.4 10^3/uL (4.0-10.0)
--- NOTE | 2019-11-26 08:57 | IPN ---
DAY #1 DATE OF SERVICE: 11/26/2019 This lady is a 29-year-old 5 now para 5 with induction of labor at 39 and 3 weeks of gestation. Had a spontaneous vaginal delivery of a livebirth male infant, 7 pounds 7 ounces, 3370 grams, scores of 9 and 9 at 1 and 5 minutes respectively. Cord around the neck times one tight. Arterial pH 7.23, base excess -5.8, venous pH 7.37, base excess -5.4. On her first day, we discussed phlebitis, cystitis, mastitis, endometritis, and cellulitis, diet, exercise, pain management, perineal, breast, and wound care. 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 Blood pressure this morning 105/59, respirations are 18, pulse 68, temperature is 98.2. She is normocephalic, atraumatic. Neck: Full range of motion. Pupils equal and reactive to light. Distal pulses symmetric. No evidence of deep venous thrombosis (DVT), pulmonary embolism (PE), or superficial phlebitis. Chest is clear bilaterally to bases. No wheezes or rhonchi. There is no costovertebral angle (CVA) tenderness. Abdomen: Soft. Uterus two below. Lochia is moderate. Four-quadrant bowel sounds are noted. She had a bit of dribble, and we gave her some Methergine by mouth, which resolved that issue. Admitting hemoglobin 10.8, hematocrit 32.9, and platelets are 213. day #1 hemoglobin is pending. The patient is anxious to go home. Will be discharged probably tomorrow.
[2019-11-26] MEDS: PRENATAL VITAMINS CHEWABLE TABLET PO SCH (09:00)
[2019-11-26] MEDS: levETIRAcetam 250MG TABLET (KEPPRA) PO SCH ×2 (09:22→21:39)
[2019-11-26 09:34] VITALS: BP 105/59
[2019-11-26] MEDS ORDERED: OXYTOCIN INJ 10 UNITS/ML VIAL (J2590) As Ordered ONE (10:46)
[2019-11-26 18:00] VITALS: BP 106/67
[2019-11-27 05:54] VITALS: BP 102/65
--- NOTE | 2019-11-27 06:12 | IPNPDOC ---
Progress Note Date of Service: Nov 27, 2019 Day#: 2 Progress Note PPD 2 SUBJECT: Jocelin is a 29yo [id number] s/p uncomplicated at 39w3d on 24 Nov 2019 after undergoing IOL for social indication. She is doing well day # 2. She has been ambulating, voiding spontaneously without issue and tolerating regular diet. Breast feeding without issue. Reports lochia is like a normal period, tapering. Cramping with , taking tylenol/motrin with relief. No f/c/n/v/CP/SOB. No lightheadedness/dizziness. OBJECTIVE: VITAL SIGNS: Within normal limits, afebrile. Alert and oriented times three. Abdomen: Fundus firm at U-2. Soft, NTTP. Extremities: no pain with palpation of calves ASSESSMENT: Jocelin is a 29yo [id number] s/p uncomplicated at 39w3d on 24 Nov 2019 after undergoing IOL for social indication. She is doing well day # 2. Vitals within normal limits, afebrile, hemodynamically stable with no evidence of infection. PLAN: 1. Discharge to home today 2. Tylenol and Motrin for pain. 3. Encourage breast feeding and ambulation. 4. Will address contraception at PP visit, she desires BTL 5. Pt instructed to schedule routine PP visit in 6 weeks in clinic. 6. Discussed return precautions at length. 7. Vaginal rest x6 weeks, no heavy lifting Dr. Rafia Nuñez MD VS, I&O, 24H, Fishbone Vital Signs/I&O Vital Signs Date Time Temp Pulse Resp B/P (MAP) Pulse Ox O2 Delivery O2 Flow Rate FiO2 11/27/19 05:54 97.6 66 18 102/65 (77) 11/26/19 18:00 98 Room Air Laboratory Data 24H LABS Laboratory Tests 2 11/26/19 06:57: Nucleated Red Blood Cells % (auto) 0.0 CBC/BMP Laboratory Tests 11/26/19 06:57 Rafia Nueñz MD Nov 27, 2019 06:12
[2019-11-27] MEDS ORDERED: ACET-683 PO (06:14)
[2019-11-27] MEDS ORDERED: IBUP80TA PO (06:14)
--- NOTE | 2019-11-27 06:16 | DS.PDOC ---
Discharge Summary General Date of Admission Nov 25, 2019 at 07:50 Date of Discharge Nov 27, 2019 Discharge Summary PROCEDURES PERFORMED DURING STAY: spontaneous vaginal delivery ADMITTING DIAGNOSES: 1. Social IOL DISCHARGE DIAGNOSES: 1. Social IOL, delivered COMPLICATIONS/CHIEF COMPLAINT: Induction. HISTORY OF PRESENT ILLNESS/HOSPITAL COURSE: Jocelin is a 29yo [id number] s/p uncomplicated at 39w3d on 24 Nov 2019 after undergoing IOL for social indication. She has had a benign PP course. She is doing well day # 2. At time of discharge, vitals were within normal limits, she is afebrile, hemodynamically stable with no evidence of infection. DISCHARGE MEDICATIONS: Please see below. ALLERGIES: Please see below. PHYSICAL EXAMINATION ON DISCHARGE: VITAL SIGNS: Within normal limits, afebrile. Alert and oriented times three. Abdomen: Fundus firm at U-2. Soft, NTTP. Extremities: no pain with palpation of calves LABORATORY DATA: Please see below. DIET: regular DISPOSITION: home DISCHARGE PLAN/INSTRUCTIONS: 1. Discharge to home today 2. Tylenol and Motrin for pain. 3. Encourage breast feeding and ambulation. 4. Will address contraception at PP visit, she desires BTL 5. Pt instructed to schedule routine PP visit in 6 weeks in clinic. 6. Discussed return precautions at length. 7. Vaginal rest x6 weeks, no heavy lifting DISCHARGE CONDITION: Stable TIME SPENT ON DISCHARGE: Greater than [address] Rafia Nuñez MD Vital Signs/I&Os Vital Signs Date Time Temp Pulse Resp B/P (MAP) Pulse Ox O2 Delivery O2 Flow Rate FiO2 11/27/19 05:54 97.6 66 18 102/65 (77) 11/26/19 18:00 98 Room Air Laboratory Data Labs 24H Laboratory Tests 2 11/26/19 06:57: Nucleated Red Blood Cells % (auto) 0.0 CBC/BMP Laboratory Tests 11/26/19 06:57 Discharge Medications Scheduled Famotidine (Famotidine) 20 Mg Tablet, 20 MG PO BID, (Reported) Levetiracetam (Keppra) 250 Mg Tablet, 125 MG PO AMHS, (Reported) Levetiracetam (Keppra) 500 Mg Tablet, 125 MG PO QAM, (Reported) Magnesium (Magnesium) 250 Mg Tablet, 1 TAB PO DAILY, (Reported) Vit,Calc76/Iron/Folic (Prenatabs Rx Tablet) 1 Each Tablet, 1 TAB PO QHS, (Reported) Scheduled PRN Acetaminophen (Acetaminophen) 500 Mg Tablet, 1,000 MG PO Q6HP PRN for PAIN LEVEL 6-10 Ibuprofen (Ibuprofen) 800 Mg Tablet, 800 MG PO Q8HP PRN for PAIN LEVEL 6-10 Allergies Coded Allergies: clindamycin (Verified Allergy, Intermediate, RASH, 04/14/19) latex (Verified Allergy, Intermediate, red blothy skin , 06/18/19) promethazine (Verified Adverse Reaction, Intermediate, WORSENS NAUSEA, 04/14/19) Rafia Nuñez MD Nov 27, 2019 06:16
[2019-11-27] MEDS: PRENATAL VITAMINS CHEWABLE TABLET PO SCH (07:32)
[2019-11-27] MEDS: levETIRAcetam 250MG TABLET (KEPPRA) PO SCH (08:55)
--- NOTE | 2019-11-27 13:50 | IPN ---
DATE: 11/25/2019 This patient requested circumcision of her male . After discussing the risks and benefits of circumcision, the medical and nonmedical indications of penile block and aftercare, expressed understanding of penile block, aftercare and bleeding, signed consent form. All questions were answered. 20-minute discussion. We await the clearance by the associate research scientist.
== END 2019-11-27 11:00 | disposition home or self-care (01) | DRG 806 ==
LOC: M LDI 07:50 → M OBS 20:22
PROVIDERS: ADMIT Registered Nurse Maternal Newborn; ATTEND Obstetrics & Gynecology
PROC: 10E0XZZ Delivery of Products of Conception, External Approach (ICD-10-PCS; principal; 2019-11-25)
PROC: 3E033VJ Introduction of Other Hormone into Peripheral Vein, Percutaneous Approach (ICD-10-PCS; 2019-11-25)
DX: O99.354 Diseases of the nervous system complicating childbirth (principal); Z37.0 Single live birth; G40.89 Other seizures; O69.1XX0 Labor and delivery complicated by cord around neck, with compression, not applicable or unspecified; G43.109 Migraine with aura, not intractable, without status migrainosus; Z3A.39 39 weeks gestation of pregnancy; O64.0XX0 Obstructed labor due to incomplete rotation of fetal head, not applicable or unspecified

== ENCOUNTER 2021-07-24 21:05 | Emergency (ER) | payer OTHER ==
[~2021-07-24] VITALS: Ht 165.1 cm; Wt 69.8 kg
[~2021-07-24 21:05] MED LIST changes: +ACET-683 PO; +IBUP80TA PO; +MAGN250T22 PO; -PEG1POW PO; +POLY17PO18 PO
--- OUTSIDE RECORDS SUMMARY | 2021-07-24 21:13 | CCD ---
Author Author [facility] Organization [facility] Address Unknown Phone Unavailable Care Team Providers Care Basketballs And Footballs Reverser Name Role Phone Dany Quinteros MD Unavailable Unavailable Dany Quinteros MD Unavailable Unavailable Dany Quinteros MD Unavailable Unavailable Dany Quinteros MD Unavailable Unavailable Dany Quinteros MD Unavailable Unavailable Dany Quinteros MD Unavailable Unavailable Dany Quinteros MD Unavailable Unavailable Dany Quinteros MD Unavailable Unavailable Dany Quinteros MD Unavailable Unavailable Dany Quinteros MD Unavailable Unavailable Dany Quinteros MD Unavailable Unavailable Dany Quinteros MD Unavailable Unavailable Dany Quinteros MD Unavailable Unavailable Dany Quinteros MD Unavailable Unavailable Dany Quinteros MD Unavailable Unavailable Dany Quinteros MD Unavailable Unavailable Dany Quinteros MD Unavailable Unavailable Dany Quinteros MD Unavailable Unavailable Dany Quinteros MD Unavailable Unavailable Dany Quinteros MD Unavailable Unavailable Dany Quinteros MD Unavailable Unavailable Dany Quinteros MD Unavailable Unavailable Dany Quinteros MD Unavailable Unavailable Dany Quinteros MD Unavailable Unavailable Dany Quinteros MD Unavailable Unavailable Re-disclosure Warning The records that you are about to access may contain information from federally-assisted alcohol or drug abuse programs. If such information is present, then the following federally mandated warning applies: This information has been disclosed to you from records protected by federal confidentiality rules (42 CFR part 2). The federal rules prohibit you from making any further disclosure of this information unless further disclosure is expressly permitted by the written consent of the person to whom it pertains or as otherwise permitted by 42 CFR part 2. A general authorization for the release of medical or other information is NOT sufficient for this purpose. The Federal rules restrict any use of the information to criminally investigate or prosecute any alcohol or drug abuse patient.The records that you are about to access may contain highly sensitive health information, the redisclosure of which is protected by Article 27-F of the [facility] Public Health law. If you continue you may have access to information: Regarding HIV / AIDS; Provided by facilities licensed or operated by the [facility] Office of Mental Health; or Provided by the [facility] Office for People With Developmental Disabilities. If such information is present, then the following [facility] mandated warning applies: This information has been disclosed to you from confidential records which are protected by state law. State law prohibits you from making any further disclosure of this information without the specific written consent of the person to whom it pertains, or as otherwise permitted by law. Any unauthorized further disclosure in violation of state law may result in a fine or custodial sentence or both. A general authorization for the release of medical or other information is NOT sufficient authorization for further disc losure. Encounters Encounter Providers Location Date Indications Data Source(s ) Outpatient Attender: Gerri Quinteros MD 1 09/16/2020 10:20:37 AM EST - 07/16/2021 12:57:53 PM EST [facility] Medications No Information Insurance Providers Payer name Policy type / Coverage type Policy ID Covered green party ID Covered green party's relationship to cruz Policy Cruz Plan Information U [id number] Spouse [id number] / [id number] Spouse 01 [id number] [facility] [id number] [facility] [id number] [facility] O [id number] S [id number] ANSI-Not a Secondary Insurance [id number] ANSI-Not a Secondary Insurance [id number] Problems, Conditions, and Diagnoses No Information Surgeries/Procedures No Information Results ID Date Data Source [id number] 07/16/2021 11:00:00 AM EST [facility] Name Value Range Interpretation Code Description Data Zahraa rce(s) Supporting Document(s) SARS-CoV-2 RNA Resp Ql BALJIT+probe NOT DETECTED [facility] This lab was ordered by TORIBIO terry and reported by TORIBIO Morales. Procedure Social History No Information
[2021-07-24] MEDS ORDERED: REGL10TA6 PO (21:20)
[2021-07-24] MEDS ORDERED: ZOFR4TAB16 PO (21:20)
[2021-07-24 22:22] LABS: BASO % 0.1 % (0.0-1.0); EOS # 0.2 10^3/uL (0.0-0.5); EOS % 2.7 % (0.0-3.0); HEMATOCRIT 36.9 % (36.0-47.0); HEMOGLOBIN 12.6 g/dl (12.0-15.5); LYMPH # 2.5 10^3/uL (1.5-5.0); LYMPH % 32.3 % (24.0-44.0); MEAN CORPUSCULAR HEMOGLOBIN 30.7 pg (27.0-33.0); MEAN CORPUSCULAR HGB CONC 34.1 g/dl (32.0-36.5); MEAN CORPUSCULAR VOLUME 89.8 fl (80.0-96.0); MONO # 0.4 10^3/uL (0.0-0.8); MONO % 5.2 % (2.0-8.0); NEUTROPHILS # 4.7 10^3/uL (1.5-8.5); NEUTROPHILS % 59.6 % (36.0-66.0); PLATELET COUNT, AUTOMATED 274 10^3/uL (150-450); RED BLOOD COUNT 4.11 10^6/uL (4.00-5.40); WHITE BLOOD COUNT 7.8 10^3/uL (4.0-10.0)
[2021-07-24 22:43] LABS: ALBUMIN 3.1 GM/DL (3.2-5.2); ALT/SGPT 43 U/L (12-78); BILIRUBIN,DIRECT 0.1 MG/DL (0.0-0.2); BILIRUBIN,TOTAL 0.3 MG/DL (0.2-1.0); BLOOD UREA NITROGEN 6 MG/DL (7-18); CALCIUM LEVEL 8.9 MG/DL (8.5-10.1); CARBON DIOXIDE LEVEL 24 MEQ/L (21-32); CHLORIDE LEVEL 109 MEQ/L (98-107); CREATININE FOR GFR 0.58 MG/DL (0.55-1.30); GLOMERULAR FILTRATION RATE > 60.0 (>60); GLUCOSE, FASTING 89 MG/DL (70-100); LIPASE 115 U/L (73-393); POTASSIUM SERUM 3.9 MEQ/L (3.5-5.1); SODIUM LEVEL 140 MEQ/L (136-145); TOTAL PROTEIN 6.6 GM/DL (6.4-8.2)
[2021-07-24 22:45] LABS: RSV AMPLIFICATION NEGATIVE (NEGATIVE)
[2021-07-25] MEDS ORDERED: ONDANSETRON 4MG/2ML VIAL IV ONE (05:10)
[2021-07-25] MEDS ORDERED: NS 1,000 ML IV ONE ×2 (05:10)
--- OUTSIDE RECORDS SUMMARY | 2021-07-25 06:45 | CCD ---
Author Author [facility] Organization [facility] Address Unknown Phone Unavailable Care Team Providers Care Freight Service Inspector Name Role Phone Dany Quinteros MD Unavailable [...] is protected by Article 27-F of the [facility] Public Health law. If you continue you may have access to information: Regarding HIV / AIDS; Provided by facilities licensed or operated by the [facility] Office of Mental Health; or Provided by the [facility] Office for People With Developmental Disabilities. If such information is present, then the following [facility] mandated warning applies: This information has been [...] law may result in a fine or shelter sentence or both. A general authorization for the release of medical or other information is NOT sufficient authorization for further disc losure. Encounters Encounter Providers Location Date Indications Data Source(s ) Outpatient Attender: Gerri Quinteros MD 1 09/16/2020 10:20:37 AM EST - 07/16/2021 12:57:53 PM EST [facility]) Medications No Information Insurance Providers Payer name Policy type / Coverage type Policy ID Covered green party ID Covered green party's relationship to cruz Policy Cruz Plan Information U [id number] Spouse [id number] Spouse 01 [id number] [facility] [id number] [facility] [id number] [facility] O [id number] S [id number] ANSI-Not a Secondary Insurance [id number] ANSI-Not a Secondary Insurance [id number] Problems, Conditions, and Diagnoses No Information Surgeries/Procedures No Information Results ID Date Data Source [id number] 07/16/2021 11:00:00 AM EST [facility] Name Value Range Interpretation Code Description Data Zahraa rce(s) Supporting Document(s) SARS-CoV-2 RNA Resp Ql BALJIT+probe NOT DETECTED [facility] This lab was ordered by TORIBIO terry and reported by TORIBIO Morales. Procedure Social History No Information
--- NOTE | 2021-07-25 08:01 | REPVR ---
PROCEDURE INFORMATION: Exam: US , Limited Exam date and time: 07/25/2021 6:25 AM Age: 31 years old Clinical indication: complicated by abdominal or pelvic pain; Generalized abdominal pain; Second trimester (14 weeks 0 days to 27 weeks 6 days); Gestational age or lmp: 16w2d; ; Additional info: Maternal n/v/diarrhea - dehydration and abdominal pain TECHNIQUE: Imaging protocol: Real-time ultrasound of the maternal uterus with image documentation. Exam focused on the clinical indication. COMPARISON: Obs. Limited, YANNICK US 10/09/2019 4:47 PM FINDINGS: Gestation: Single intrauterine gestation. heart rate: 156 bpm presentation: Breech. Placenta: Anterior. Grade 0. No demonstrated previa or abruption. Amniotic fluid index: 11.0 cm MATERNAL: Cervix: Closed. 3.3 cm in length. IMPRESSION: Single viable intrauterine gestation in breech presentation. Electronically signed by: Errol Ding On 07/25/2021 08:00:26 AM
--- NOTE | 2021-07-25 08:03 | REPVR ---
PROCEDURE INFORMATION: Exam: US Retroperitoneal Limited, Kidneys Exam date and time: 07/25/2021 6:25 AM Age: 31 years old Clinical indication: Abdominal pain; Flank; Right; ; Additional info: Right sided flank pain TECHNIQUE: Imaging protocol: Real-time ultrasound of the retroperitoneum with image documentation. Examination was focused on the kidneys. COMPARISON: CT ABD PELVIS WITH CONTRAST 05/04/2019 3:03 PM (report not provided) FINDINGS: Right kidney: The right kidney measures 9.7 x 4.2 x 4.3 cm. Normal appearing echotexture. There is no hydronephrosis or demonstrated renal stone, cyst or mass. Left kidney: The left kidney measures 10.9 x 4.5 x 4.7 cm. Normal appearing echotexture. There is no hydronephrosis or demonstrated renal stone, cyst or mass. Bladder: The nondistended urinary bladder appears grossly unremarkable. IMPRESSION: Unremarkable sonographic appearance of the kidneys. Electronically signed by: Errol Ding On 07/25/2021 08:02:38 AM
--- NOTE | 2021-07-25 09:19 | REP ---
INDICATION: cough, flu, COMPARISON: None. TECHNIQUE: Portable AP view of the chest FINDINGS: The mediastinum and cardiac silhouette are within normal limits for portable technique. The lung corea are clear without acute consolidation, effusion, or pneumothorax. Skeletal structures are intact. IMPRESSION: No acute cardiopulmonary process appreciated. <Electronically signed by Catrachito Cardenas > 07/25/21 0916
[2021-07-25] MEDS ORDERED: OSELTAMIVIR PHOSPHATE 75 MG CAP (TAMIFLU) PO ONE (10:00)
[2021-07-25] MEDS ORDERED: OSEL75CA PO (10:18)
[2021-07-25 10:40] VITALS: BP 123/71
== END 2021-07-25 10:43 | disposition home or self-care (01) ==
LOC: M ED 21:05
DX: J09.X2 Influenza due to identified novel influenza A virus with other respiratory manifestations (principal); Z88.1 Allergy status to other antibiotic agents; Z88.8 Allergy status to other drugs, medicaments and biological substances; Z91.040 Latex allergy status; Z3A.16 16 weeks gestation of pregnancy
CPT/HCPCS: 71045; 76775; 76815; 80048; 80076; 81001; 83690; 85025; 87086; 87631; 96361; 96374; 99284; J2405

== ENCOUNTER 2021-11-11 21:02 | Outpatient (CLI) | payer OTHER ==
[~2021-11-11] VITALS: Ht 165.1 cm; Wt 75.0 kg
[~2021-11-11 21:02] MED LIST changes: +OSEL75CA PO; +ZOFR4TAB16 PO
[2021-11-11 21:11] VITALS: BP 138/80
[2021-11-11] MEDS ORDERED: FLUCONAZOLE 100 MG TAB PO ONE (21:35)
[2021-11-11] MEDS ORDERED: FLUCONAZOLE 50MG TABLET PO ONE (21:45)
[2021-11-11] MEDS ORDERED: ONDANSETRON 4MG ORAL DISINTEGRATING TAB PO ONE (22:10)
[2021-11-11] MEDS ORDERED: PRENTAB9 PO (23:10)
[2021-11-11 23:36] VITALS: BP 123/63
== END 2021-11-11 23:43 | disposition home or self-care (01) ==
LOC: M LDO 21:02
PROVIDERS: ATTEND Registered Nurse
DX: O23.593 Infection of other part of genital tract in pregnancy, third trimester (principal); B37.9 Candidiasis, unspecified; Z3A.33 33 weeks gestation of pregnancy; Z87.51 Personal history of pre-term labor; Z88.1 Allergy status to other antibiotic agents; Z88.8 Allergy status to other drugs, medicaments and biological substances; Z91.040 Latex allergy status
CPT/HCPCS: 59025; 87081; 87426; G0378; G0463

== ENCOUNTER 2021-12-25 22:26 | Inpatient (IN) | payer OTHER ==
[~2021-12-25] VITALS: Ht 165.1 cm; Wt 74.6 kg
[~2021-12-25 22:26] MED LIST changes: +PRENTAB9 PO
[2021-12-25 22:48] VITALS: BP 123/59
[2021-12-25] MEDS ORDERED: HOME MED LIST COMPLETE! XX SCH (22:55)
[2021-12-25] MEDS ORDERED: LR 1,000 ML IV ONE (23:20)
[2021-12-25 23:35] VITALS: BP 129/75
[2021-12-26] VITALS (17 sets, daily range): BP systolic 114–178; BP diastolic 55–89
[2021-12-26] MEDS ORDERED: OXYTOCIN INJ 10 UNITS/ML VIAL (J2590) IM PRN (02:05)
[2021-12-26] MEDS ORDERED: LIDOCAINE 1% MDV 20ML VIAL INFIL PRN (02:05)
[2021-12-26] MEDS ORDERED: OXYTOCIN INJ 10 UNITS/ML VIAL (J2590) IV PRN (02:05)
[2021-12-26] MEDS ORDERED: OXYTOCIN DRIP 30 UNITS in IV 1 EA IV PRN ×4 (02:05)
[2021-12-26] MEDS ORDERED: LR 1,000 ML IV SCH ×2 (02:05→18:45)
[2021-12-26] MEDS ORDERED: TRANEXAMIC ACID INJection 1,000 MG in NS 100 ML IV PRN (02:05)
[2021-12-26] MEDS ORDERED: OXYTOCIN DRIP 30 UNITS in IV 1 EA IV SCH ×2 (02:05→18:45)
[2021-12-26] MEDS ORDERED: LACTATED RINGER'S 1000 ML IV STA (02:05)
[2021-12-26 02:47] LABS: HEMATOCRIT 30.5 % (36.0-47.0); HEMOGLOBIN 10.4 g/dl (12.0-15.5); MEAN CORPUSCULAR HEMOGLOBIN 30.1 pg (27.0-33.0); MEAN CORPUSCULAR HGB CONC 34.1 g/dl (32.0-36.5); MEAN CORPUSCULAR VOLUME 88.4 fl (80.0-96.0); PLATELET COUNT, AUTOMATED 190 10^3/uL (150-450); RED BLOOD COUNT 3.45 10^6/uL (4.00-5.40); WHITE BLOOD COUNT 11.7 10^3/uL (4.0-10.0)
[2021-12-26] MEDS: LR 1,000 ML IV SCH ×2 (04:20→10:05)
[2021-12-26] MEDS ORDERED: BUTORPHANOL 2 MG/ML INJ (J0595) IV ONE (15:45)
[2021-12-26] MEDS ORDERED: ONDANSETRON 4MG/2ML VIAL IV ONE (15:45)
[2021-12-26] MEDS ORDERED: RHOGAM 300 MCG (1500 IU) INJ (J2790) IM SCH (18:45)
[2021-12-26] MEDS ORDERED: DOCUSATE SODIUM 100MG CAPSULE PO PRN (18:45)
[2021-12-26] MEDS ORDERED: ONDANSETRON 4MG/2ML VIAL IV PRN (18:45)
[2021-12-26] MEDS ORDERED: DIBUCAINE 1% OINTMENT 30GM TOP PRN (18:45)
[2021-12-26] MEDS ORDERED: MEASLES,MUMPS,RUBELLA VACCINE INJ (MMR-II) (90707) SC SCH (18:45)
[2021-12-26] MEDS ORDERED: METHYLERGONOVINE MALEATE 0.2 MG/ML VIAL (J2210) IM PRN (18:45)
[2021-12-26] MEDS ORDERED: METOCLOPRAMIDE INJ 10MG/2ML VIAL (J2765 PER 1) IV PRN (18:45)
[2021-12-26 18:48] LABS: CORD GAS ABE A -7.7; CORD GAS O2 SAT A 86.3 %; CORD GAS PCO2 A 55.3 mmHg; CORD GAS PH A 7.197 UNITS; CORD GAS PO2 A 48.6 mmHg; CORD GAS SBC A 18.1 MEQ/L; CORD GAS TCO2 A 22.7 MEQ/L
[2021-12-26 18:51] LABS: CORD GAS ABE V -3.8; CORD GAS O2 SAT V 76.6 %; CORD GAS PCO2 V 42.5 mmHg; CORD GAS PH V 7.331 UNITS; CORD GAS PO2 V 33.2 mmHg; CORD GAS SBC V 20.8 MEQ/L; CORD GAS TCO2 V 23.3 MEQ/L
[2021-12-26] MEDS ORDERED: FAMOTIDINE 20 MG TAB PO ONE (19:55)
[2021-12-26] MEDS: ACETAMINOPHEN 500 MG TAB PO SCH (20:04)
[2021-12-26] MEDS: IBUPROFEN 800 MG TAB PO SCH (20:09)
[2021-12-27] MEDS: ACETAMINOPHEN 500 MG TAB PO SCH ×3 (00:45→14:26)
[2021-12-27] MEDS: IBUPROFEN 800 MG TAB PO SCH ×2 (04:00→12:35)
[2021-12-27 06:00] VITALS: BP 105/57
[2021-12-27] MEDS ORDERED: IBUP80TA PO (06:47)
[2021-12-27] MEDS ORDERED: ACET-683 PO (06:47)
[2021-12-27] MEDS ORDERED: COLA100C5 PO (06:47)
[2021-12-27 07:21] LABS: HEMOGLOBIN 10.6 g/dl (12.0-15.5); MEAN CORPUSCULAR HGB CONC 33.1 g/dl (32.0-36.5); MEAN CORPUSCULAR VOLUME 90.7 fl (80.0-96.0); PLATELET COUNT, AUTOMATED 204 10^3/uL (150-450); RED BLOOD COUNT 3.53 10^6/uL (4.00-5.40); WHITE BLOOD COUNT 12.1 10^3/uL (4.0-10.0)
[2021-12-27] MEDS ORDERED: PRENATAL VITAMINS CHEWABLE TABLET PO SCH ×2 (09:00)
== END 2021-12-27 14:00 | disposition home or self-care (01) | DRG 807 ==
LOC: M LDO 22:26 → M LDI 12-26 02:04 → M OBS 12-26 20:29
PROVIDERS: ADMIT Obstetrics & Gynecology; ATTEND Obstetrics & Gynecology
PROC: 10E0XZZ Delivery of Products of Conception, External Approach (ICD-10-PCS; principal; 2021-12-26)
PROC: 0HQ9XZZ Repair Perineum Skin, External Approach (ICD-10-PCS; 2021-12-26)
DX: O70.0 First degree perineal laceration during delivery (principal); Z37.0 Single live birth; Z3A.38 38 weeks gestation of pregnancy